=== PATIENT | male | born 1960 | race Hispanic/Latino ===

== ENCOUNTER 2016-12-19 16:28 | Emergency (ER) | payer OTHER ==
[2016-12-19 16:29] VITALS: BMI 23.5
--- NOTE | 2016-12-19 16:34 | ED PDOC ---
Arrival/HPI - General Time Seen by Provider: 12/19/16 16:31 Historian: Patient, EMS - History of Present Illness Narrative History of Present Illness (Text): 12/19/16 16:32 56 y/o male, pmh including chronic L4L5/L5S1 disc herniation and disc bulging, psychiatric history including alcohol abuse, nkda, biba got into verbal argument with the sister plus the chronic lower back pain. Pt. stated that he has been drinking this week due to he is stress out, no homicidal or suicidal ideation, no auditory or visual hallucination. Pt. stated that he has chronic lower back pain on and off for years, no numbness or tingling, no injury or fall recently, request to have xray perform and treat for his pain, no urinary or bowel incontinence or retention, no rash, no other medical or psychological complaints. Past Medical History - Provider Review Nursing Documentation Reviewed: Yes - Tetanus Immunization Tetanus Immunization: Unknown - Cardiac Hx Coronary Artery Disease: Yes (3 stents) Hx Hyperlipemia: Yes Hx Hypertension: Yes - Musculoskeletal/Rheumatological Hx Musculoskeletal Disorders: (back issues) - Psychiatric Hx Depression: Yes Hx Emotional Abuse: No Hx Physical Abuse: No Hx Substance Use: Yes (pt takes his mothers percocet for back pain) - Surgical History Hx Coronary Stent: Yes - Anesthesia Hx Anesthesia: Yes Hx Anesthesia Reactions: No Hx Malignant Hyperthermia: No - Suicidal Assessment Feels Threatened In Home Enviroment: No Family/Social History - Physician Review Nursing Documentation Reviewed: Yes Family/Social History: Unknown Family HX Smoking Status: cigars Hx Alcohol Use: Yes Hx Substance Use: Yes (pt takes his mothers percocet for back pain) Hx Substance Use Treatment: No Allergies/Home Meds Allergies/Adverse Reactions: Allergies No Known Allergies Allergy (Verified 12/19/16 16:51) Home Medications: Home Meds Medication Instructions Recorded Confirmed QUEtiapine [SEROquel] 100 mg PO HS 12/18/11 12/19/16 Review of Systems - Review of Systems Constitutional: absent: Fatigue, Fevers Eyes: absent: Vision Changes ENT: absent: Hearing Changes Respiratory: absent: SOB, Cough Cardiovascular: absent: Chest Pain Gastrointestinal: absent: Abdominal Pain, Diarrhea, Nausea, Vomiting Musculoskeletal: Back Pain. absent: Arthralgias, Neck Pain, Joint Swelling, Myalgias Skin: absent: Rash, Pruritis, Skin Lesions, Laceration Physical Exam Vital Signs Reviewed: Yes Vital Signs Temp Pulse Resp BP Pulse Ox 12/20/16 00:23 73 17 99/56 L 97 12/19/16 16:45 99.1 F 91 H 16 105/58 L 95 Temperature: Afebrile Blood Pressure: Normal Pulse: Regular Respiratory Rate: Normal Appearance: Positive for: Well-Appearing, Non-Toxic, Comfortable Pain Distress: Moderate Mental Status: Positive for: Alert and Oriented X 3 - Systems Exam Head: Present: Atraumatic, Normocephalic Pupils: Present: PERRL Extroacular Muscles: Present: EOMI Conjunctiva: Present: Normal Mouth: Present: Moist Mucous Membranes Neck: Present: Normal Range of Motion Respiratory/Chest: Present: Clear to Auscultation, Good Air Exchange. No: Respiratory Distress, Accessory Muscle Use Cardiovascular: Present: Regular Rate and Rhythm, Normal S1, S2. No: Murmurs Abdomen: Present: Normal Bowel Sounds. No: Tenderness, Distention, Peritoneal Signs Back: Present: Normal Inspection, Paraspinal Tenderness (LS spine: +ttp on the rt. paraspinal muscle region, no midline tenderness or step off noted, FROM without limitation, sensation intact, motor 5/5, ). No: CVA Tenderness, Midline Tenderness Upper Extremity: Present: Normal Inspection. No: Cyanosis, Edema Lower Extremity: Present: Normal Inspection. No: Edema Neurological: Present: GCS=15, Speech Normal, Motor Func Grossly Intact, Gait Normal, Memory Normal Skin: Present: Warm, Dry, Normal Color. No: Rashes Psychiatric: Present: Alert, Oriented x 3, Normal Insight, Normal Concentration Medical Decision Making ED Course and Treatment: 12/19/16 17:12 -toradol IM -Valium 5mg po -LS spine xray -FS 116 -Observe and reassess 12/19/16 17:31 -Xray show: +degenerative changes, no fracture or subluxation. 12/19/16 21:29 -Pt. was having pain, morphine 4mg/lidoderm and percocet ordered for him. -Pt. slept in the ER, not complaining of pain, walking with normal gait and posture, no focal neurological deficits, stable to be discharged home. -Pt. admits that he only need a place to sleep for couple hours for this ER visit, will discharge home. -Discharge home with lidoderm patch, bed rest, follow up with your own pmd within 2 days, return to the ER for any new or worsening signs or symptoms. - RAD Interpretation Radiology Orders: 12/19/16 17:03 LS SPINE WITH OBL > 18 YRS OLD [RAD] Stat No acute fracture. Please see the report for the reading. Cistern Room Working Supervisor: Radiologist - Medication Orders Current Medication Orders: Discontinued Medications Diazepam (Valium) 5 mg PO ONCE ONE PRN Reason: Protocol Stop: 12/19/16 17:04 Last Admin: 12/19/16 17:38 Dose: 5 mg Ketorolac Tromethamine (Toradol) 60 mg IM STAT STA Stop: 12/19/16 17:04 Last Admin: 12/19/16 17:37 Dose: 60 mg Lidocaine (Lidoderm) 1 ea TD STAT STA Stop: 12/19/16 19:19 Last Admin: 12/19/16 19:50 Dose: 1 ea Morphine Sulfate (Morphine) 4 mg IM STAT STA Stop: 12/19/16 19:19 Last Admin: 12/19/16 19:50 Dose: 4 mg Oxycodone/Acetaminophen (Percocet 5/325 Mg Tab) 1 tab PO STAT STA Stop: 12/19/16 21:30 Last Admin: 12/19/16 22:20 Dose: 1 tab - PA / METAL MOLDER / Resident Statement / has reviewed & agrees with the documentation as recorded. Disposition/Present on Arrival - Present on Arrival Any Indicators Present on Arrival: No History of DVT/PE: No History of Uncontrolled Diabetes: No Urinary Catheter: No History of Decub. Ulcer: No History Surgical Site Infection Following: None - Disposition Have Diagnosis and Disposition been Completed?: Yes Diagnosis: Chronic lower back pain Disposition: HOME/ ROUTINE Disposition Time: 21:30 Patient Plan: Discharge Condition: IMPROVED Additional Instructions: Discharge home with lidoderm patch, bed rest, follow up with your own pmd within 2 days, return to the ER for any new or worsening signs or symptoms. Prescriptions: Lidocaine 5% [Lidoderm] 1 patch TOP DAILY PRN #14 patch PRN Reason: Other Referrals: Jet Mejia MD [Primary Care Provider] - Follow up with primary Shaji Winston MD [Staff Provider] - Follow up with primary Forms: WORK NOTE
[2016-12-19 16:46] VITALS: TEMP 99.1
[2016-12-19] MEDS ORDERED: Lidocaine 5% Patch TD STA (19:18)
[2016-12-19] MEDS ORDERED: Morphine 4 mg/ml ISec IM STA (19:18)
[2016-12-19] MEDS ORDERED: Oxycodone/Acetaminophen 5/325 mg Tab PO STA (21:29)
[2016-12-20 00:24] VITALS: BP 99/56; PULSE 73; RESP 17; O2SAT 97
--- NOTE | 2016-12-20 10:34 | RAD ---
PROCEDURE: Radiographs of the Lumbar Spine. HISTORY: Chronic low back pain COMPARISON: MRI lumbar spine from 05/29/2014. FINDINGS: BONES: There is grade 1 anterior listhesis of L5 on S1. There are bilateral pars interarticularis defects at L5. There is no acute fracture. Bone mineralization is normal. DISC SPACES: There is mild degenerative disc disease at L5-S1 with reduced disc height. The remaining disc heights are maintained. There is mild multilevel degenerative disc disease in the visualized lower thoracic spine. OTHER FINDINGS: There are no pathologic soft tissue calcifications. Both sacroiliac joints are normal. IMPRESSION: 1. Bilateral pars interarticularis defects at L5 with grade 1 anterior listhesis of L5 on S1. 2. Mild degenerative disc disease at L5-S1.
== END 2016-12-20 00:24 | disposition home or self-care (01) ==
LOC: ED 16:28
DX: M54.5 Low back pain (principal); G89.29 Other chronic pain
CPT/HCPCS: 72110; 96372; 99283; J1885; J2270

== ENCOUNTER 2018-01-08 19:18 | Emergency (ER) | payer OTHER ==
--- NOTE | 2018-01-08 19:32 | ED PDOC ---
Arrival/HPI - General Time Seen by Provider: 01/08/18 19:28 Historian: Patient - History of Present Illness Narrative History of Present Illness (Text): 01/08/18 19:25 A 57 year old male, whose past medical history includes alcohol abuse, presents to the emergency department complaining of left knee pain started today. Patient reports when he got out of his house today to get mail, walking and he turned around, heard a clicking sound from his left knee joint. Since then, patient notes pain with flexing and extention, however is capable of standing and ambulating to the ER. He mentions he has not taken anything to relieve pain. Patient denies calf/thigh pain, or any other complaints at this time. Past Medical History - Provider Review Nursing Documentation Reviewed: Yes - Tetanus Immunization Tetanus Immunization: Unknown - Cardiac Hx Coronary Artery Disease: Yes (3 stents) Hx Hyperlipemia: Yes Hx Hypertension: Yes - Pulmonary Hx Respiratory Disorders: No - Neurological Hx Neurological Disorder: No - HEENT Hx HEENT Disorder: No - Renal Hx Renal Disorder: No - Endocrine/Metabolic Hx Endocrine Disorders: No - Hematological/Oncological Hx Blood Disorders: No - Integumentary Hx Dermatological Disorder: No Hx Basal Cell Carcinoma: No - Musculoskeletal/Rheumatological Hx Musculoskeletal Disorders: (back issues) - Gastrointestinal Hx Gastrointestinal Disorders: No - Genitourinary/Gynecological Hx Genitourinary Disorders: No - Psychiatric Hx Depression: Yes Hx Emotional Abuse: No Hx Physical Abuse: No Hx Substance Use: Yes (pt takes his mothers percocet for back pain) - Surgical History Hx Coronary Stent: Yes - Anesthesia Hx Anesthesia: Yes Hx Anesthesia Reactions: No Hx Malignant Hyperthermia: No - Suicidal Assessment Feels Threatened In Home Enviroment: No Family/Social History - Physician Review Nursing Documentation Reviewed: Yes Family/Social History: No Known Family HX Smoking Status: cigars Hx Alcohol Use: Yes Hx Substance Use: Yes (pt takes his mothers percocet for back pain) Hx Substance Use Treatment: No Allergies/Home Meds Allergies/Adverse Reactions: Allergies No Known Allergies Allergy (Verified 12/19/16 16:51) Home Medications: Home Meds Medication Instructions Recorded Confirmed QUEtiapine [SEROquel] 100 mg PO HS 12/18/11 12/19/16 Review of Systems - Physician Review All systems were reviewed & negative as marked: Yes - Review of Systems Constitutional: absent: Fatigue Eyes: absent: Vision Changes ENT: absent: Hearing Changes Respiratory: absent: SOB, Cough Cardiovascular: absent: Chest Pain Gastrointestinal: absent: Abdominal Pain, Nausea, Vomiting Musculoskeletal: Arthralgias, Joint Swelling (left knee) Skin: absent: Rash, Pruritis Neurological: absent: Headache, Dizziness Psychiatric: absent: Anxiety, Depression Physical Exam Vital Signs Temp Pulse Resp BP Pulse Ox 01/08/18 21:30 98 F 81 18 145/80 100 01/08/18 19:18 98.1 F 82 18 150/81 95 - Systems Exam Head: Present: Atraumatic, Normocephalic Pupils: Present: PERRL Extroacular Muscles: Present: EOMI Conjunctiva: Present: Normal Mouth: Present: Moist Mucous Membranes Neck: Present: Normal Range of Motion Respiratory/Chest: Present: Clear to Auscultation, Good Air Exchange. No: Respiratory Distress, Accessory Muscle Use Cardiovascular: Present: Regular Rate and Rhythm, Normal S1, S2. No: Murmurs Abdomen: No: Tenderness, Distention, Peritoneal Signs Back: Present: Normal Inspection Upper Extremity: Present: Normal Inspection. No: Cyanosis, Edema Lower Extremity: Present: Normal Inspection, Other (LLE: +ttp and swelling on the anterior patellar region with skin intact along, no erythematous/cellulitis/ streaking/ulcers, FROM without limitation, sensation intact, motor 5/5, +DPPT pulses, capillary refill< 2 seconds, neurovascular intact. ). No: Edema Neurological: Present: GCS=15, CN II-XII Intact, Speech Normal Skin: Present: Warm, Dry, Normal Color. No: Rashes Psychiatric: Present: Alert, Oriented x 3, Normal Insight, Normal Concentration Medical Decision Making ED Course and Treatment: 01/08/18 19:28 Impression: 57 year old male with left knee pain. Plan: -- Left Knee X-Ray -- Percocet -- Ibuprofen -- Reassess and disposition 01/08/18 20:50 -Lt. knee xray show no fracture or dislocatoin -Pt. feels much better. -Andrew wrap applied with neurovascular intact by me, crutches -Discharge home with motrin, andrew wrap, crutches, ice compression, non-weight bearing, follow up with your own pmd and orthopedic within 2 days, return to the ER for any new or worsening signs or symptoms. - RAD Interpretation Radiology Orders: 01/08/18 19:46 KNEE WITH PATELLA LEFT 3 VIEW [RAD] Stat normal radiograph of the left knee Pumping Station Engineer: Radiologist - Medication Orders Current Medication Orders: Discontinued Medications Ibuprofen (Motrin Tab) 600 mg PO STAT STA Stop: 01/08/18 19:47 Last Admin: 01/08/18 20:19 Dose: 600 mg [facility] Pain/Vitals Document 01/08/18 20:19 [place] (Rec: 01/08/18 20:19 LA [facility] [email or web address]) Pain Reassessment Is This A Pain ReAssessment? No Sleep Is patient sleeping during reassessment? No Presence of Pain Presence of Pain Yes Pain Scale Used Pain Scale Used Numeric Location Upper or Lower Lower Pain Location Body Site Knee Intensity 9 Re-Assess: [facility] Pain/Vitals Document 01/08/18 21:19 LA (Rec: 01/08/18 21:29 LA [facility] [email or web address] Pain Reassessment Is This A Pain ReAssessment? Yes Sleep Is patient sleeping during reassessment? No Presence of Pain Presence of Pain Yes Pain Scale Used Pain Scale Used Numeric Location Left, Right or Bilateral Left Pain Location Body Site Knee Intensity 2 Scale Used Numeric Oxycodone/Acetaminophen (Percocet 5/325 Mg Tab) 1 tab PO STAT STA Stop: 01/08/18 19:47 Last Admin: 01/08/18 20:20 Dose: 1 tab [facility] Pain Assessment Document 01/08/18 20:20 LA (Rec: 01/08/18 20:20 LA [email or web address] Pain Reassessment Is this a pain reassessment? No Sleep Is patient sleeping during reassessment? No Presence of Pain Presence of Pain Yes Pain Scale Used Pain Scale Used Numeric Location Left, Right or Bilateral Left Upper or Lower Lower Pain Location Body Site Knee Description Pain Behavior Guarding Re-Assess: [facility] Pain Assessment Document 01/08/18 21:20 LA (Rec: 01/08/18 21:29 LA [email or web address] Pain Reassessment Is this a pain reassessment? Yes Sleep Is patient sleeping during reassessment? No Presence of Pain Presence of Pain Yes Pain Scale Used Pain Scale Used Numeric Location Left, Right or Bilateral Left Pain Location Body Site Knee Description Intensity of Pain at present 2 Acceptable Level of Pain 2 Pain Behavior Guarding - PA / BARREL CUTTER / Resident Statement / has reviewed & agrees with the documentation as recorded. - Scribe Statement The provider has reviewed the documentation as recorded by the Lefty Philip Provider Scribe Provider Lefty Attestation: All medical record entries made by the Lefty were at my direction and personally dictated by me. I have reviewed the chart and agree that the record accurately reflects my personal performance of the history, physical exam, medical decision making, and the department course for this patient. I have also personally directed, reviewed, and agree with the discharge instructions and disposition. Disposition/Present on Arrival - Present on Arrival Any Indicators Present on Arrival: No History of DVT/PE: No History of Uncontrolled Diabetes: Yes Urinary Catheter: No History of Decub. Ulcer: No History Surgical Site Infection Following: None - Disposition Have Diagnosis and Disposition been Completed?: Yes Diagnosis: Knee injury, Knee pain Disposition: HOME/ ROUTINE Disposition Time: 19:53 Patient Plan: Discharge Condition: IMPROVED Additional Instructions: -Discharge home with motrin, andrew wrap, crutches, ice compression, non-weight bearing, follow up with your own pmd and orthopedic within 2 days, return to the ER for any new or worsening signs or symptoms. Prescriptions: Ibuprofen [Motrin] 600 mg PO QID PRN #30 tab PRN Reason: Other Referrals: Darryl Gallego III, MD [Medical Doctor] - Follow up with primary [facility] at [facility] [Outside] - Follow up with primary Forms: WORK NOTE
[2018-01-08] MEDS ORDERED: Oxycodone/Acetaminophen 5/325 mg Tab PO STA (19:46)
[2018-01-08 19:47] VITALS: BMI 24.3
[2018-01-08 20:11] VITALS: RESP 18
[2018-01-08 21:31] VITALS: BP 145/80; PULSE 81; TEMP 98; O2SAT 100
--- NOTE | 2018-01-09 08:19 | RAD ---
Date of service: 01/08/2018 PROCEDURE: Left Knee Radiographs. HISTORY: Pain. COMPARISON: None. FINDINGS: BONES: Normal. No fracture. JOINTS: Normal. No osteoarthritis. JOINT EFFUSION: None. OTHER FINDINGS: None. IMPRESSION: Normal radiographs of the left knee.
== END 2018-01-08 21:32 | disposition home or self-care (01) ==
LOC: ED 19:18
DX: M25.562 Pain in left knee (principal); X58.XXXA Exposure to other specified factors, initial encounter

== ENCOUNTER 2018-04-24 05:55 | Inpatient (IN) | payer OTHER ==
--- NOTE | 2018-04-24 06:12 | ED PDOC ---
Arrival/HPI - General Chief Complaint: Weakness/Neurological Deficit Time Seen by Provider: 04/24/18 05:57 Historian: Patient - History of Present Illness Narrative History of Present Illness (Text): 04/24/18 06:05 Jet Carrasco is a 57 year old male smoker, whose past medical history includes CAD with 3 cardiac stents, hyperlipidemia, hypertension, chronic back pain, and alcohol abuse, who presents to the Emergency department brought in by EMS complaining of near-syncope. Patient states he woke up this morning, got up from bed, felt very weak while walking, and suddenly fell to the ground. Patient states he was unable to get up from the floor and crawled on the floor to open the door. Patient also reports bilateral lower extremity weakness with some discomfort. Patient notes yesterday he had some chest pain, but none currently. Patient states he was scheduled for an epidural earlier this week, however his mother . Patient denies any fever, chills, shortness of breath, abdominal pain, nausea, vomiting, back pain, headache, vision changes, or any other complaints. Time/Duration: Prior to Arrival Symptom Onset: Sudden Symptom Course: Unchanged Activities at Onset: Light Context: Home Past Medical History - Provider Review Nursing Documentation Reviewed: Yes - Infectious Disease Hx of Infectious Diseases: None - Tetanus Immunization Tetanus Immunization: Unknown - Cardiac Hx Hypertension: Yes - Pulmonary Hx Respiratory Disorders: No - Neurological Hx Neurological Disorder: No - HEENT Hx HEENT Disorder: No - Renal Hx Renal Disorder: No - Endocrine/Metabolic Hx Endocrine Disorders: No - Hematological/Oncological Hx Blood Disorders: No - Integumentary Hx Dermatological Disorder: No Hx Basal Cell Carcinoma: No - Musculoskeletal/Rheumatological Hx Musculoskeletal Disorders: (back issues) - Gastrointestinal Hx Gastrointestinal Disorders: No - Genitourinary/Gynecological Hx Genitourinary Disorders: No - Psychiatric Hx Depression: Yes Hx Emotional Abuse: No Hx Physical Abuse: No Hx Substance Use: Yes (pt takes his mothers percocet for back pain) - Surgical History Hx Coronary Stent: Yes - Anesthesia Hx Anesthesia: Yes Hx Anesthesia Reactions: No Hx Malignant Hyperthermia: No - Suicidal Assessment Feels Threatened In Home Enviroment: No Family/Social History - Physician Review Nursing Documentation Reviewed: Yes Family/Social History: Unknown Family HX Smoking Status: Never Smoked Hx Alcohol Use: Yes Hx Substance Use: Yes (pt takes his mothers percocet for back pain) Hx Substance Use Treatment: No Allergies/Home Meds Allergies/Adverse Reactions: Allergies No Known Allergies Allergy (Verified 12/19/16 16:51) Home Medications: Home Meds Medication Instructions Recorded Confirmed Gabapentin [Neurontin] 300 mg PO Q8H 04/24/18 04/24/18 Oxycodone HCl/Acetaminophen 1 each PO TID PRN 04/24/18 04/24/18 [Percocet 10-325 mg Tablet] QUEtiapine [SEROquel] 100 mg PO HS 04/24/18 04/24/18 Review of Systems - Physician Review All systems were reviewed & negative as marked: Yes - Review of Systems Constitutional: Other (+generalized weakness). absent: Fevers Eyes: Normal ENT: Normal Respiratory: Normal Cardiovascular: Chest Pain, Other (+near-syncope) Gastrointestinal: Normal. absent: Abdominal Pain, Diarrhea, Nausea, Vomiting Genitourinary Male: Normal. absent: Dysuria, Frequency, Hematuria, Urinary Output Changes Musculoskeletal: Normal. absent: Back Pain, Neck Pain Skin: Normal. absent: Rash Neurological: Other (+bilateral lower extremity weakness) Endocrine: Normal Hemo/Lymphatic: Normal Psychiatric: Normal Physical Exam Vital Signs Reviewed: Yes Temperature: Afebrile Blood Pressure: Normal Pulse: Regular Respiratory Rate: Normal Appearance: Positive for: Well-Appearing, Non-Toxic, Comfortable Pain Distress: None Mental Status: Positive for: Alert and Oriented X 3 - Systems Exam Head: Present: Atraumatic, Normocephalic Pupils: Present: PERRL Extroacular Muscles: Present: EOMI Conjunctiva: Present: Normal Mouth: Present: Moist Mucous Membranes Neck: Present: Normal Range of Motion Respiratory/Chest: Present: Clear to Auscultation, Good Air Exchange. No: Respiratory Distress, Accessory Muscle Use Cardiovascular: Present: Regular Rate and Rhythm, Normal S1, S2. No: Murmurs Abdomen: No: Tenderness, Distention, Peritoneal Signs Back: Present: Normal Inspection Upper Extremity: Present: Normal Inspection. No: Cyanosis, Edema Lower Extremity: Present: Normal Inspection. No: Edema Neurological: Present: GCS=15, CN II-XII Intact, Speech Normal Skin: Present: Warm, Dry, Normal Color. No: Rashes Psychiatric: Present: Alert, Oriented x 3, Normal Insight, Normal Concentration Medical Decision Making ED Course and Treatment: 04/24/18 06:06 Impression: 57 year old male complaining of near-syncope, generalized weakness, bilateral lower extremity weakness, and chest pain. Plan: -- CT Head w/o contrast -- EKG -- Chest X-ray -- Labs, cardiac enzynes, D-dimer -- Reassess and disposition Prior Visits: Notes and results from previous visits were reviewed. On 01/08/2018, pt was seen in the Emergency department for left knee pain. Pt was discharged home. Progress Notes: Reviewed EKG, sinus rhythm at 91 bpm. Occasional PVC. Inferior infarct. Prolonged QT. - EKG Interpretation Interpreted by ED Physician: Yes Type: 12 lead EKG - Transfer of Care Patient signed out to Dr:: anival labs ct and dispo - Scribe Statement The provider has reviewed the documentation as recorded by the Lefty William Provider Scribe Attestation: All medical record entries made by the Scribe were at my direction and personally dictated by me. I have reviewed the chart and agree that the record accurately reflects my personal performance of the history, physical exam, medical decision making, and the department course for this patient. I have also personally directed, reviewed, and agree with the discharge instructions and disposition. Disposition/Present on Arrival - Present on Arrival Any Indicators Present on Arrival: No History of DVT/PE: No History of Uncontrolled Diabetes: Yes Urinary Catheter: No History of Decub. Ulcer: No History Surgical Site Infection Following: None - Disposition Have Diagnosis and Disposition been Completed?: Yes Diagnosis: Syncope, Chest pain, Hyponatremia, Hypokalemia Disposition: HOSPITALIZED Disposition Time: 07:00 Patient Problems: Current Active Problems Problem Status Onset Chest pain Acute Hypokalemia Acute Hyponatremia Acute Syncope Acute Condition: FAIR
[2018-04-24 06:40] LABS: BASO # 0.02 K/mm3 (0.0-2.0); BASO % 0.2 % (0.0-3.0); EOS % 0.4 % (1.5-5.0); GRAN # 5.81 (1.4-6.5); GRAN % 68.3 % (50.0-68.0); HEMOGLOBIN 15.6 g/dL (14.0-18.0); LYMPH # 1.6 (1.2-3.4); LYMPH % 18.8 % (22.0-35.0); MEAN CORPUSCULAR HEMOGLOBIN 31.2 pg (25.0-35.0); MEAN CORPUSCULAR HGB CONC 34.7 g/dl (31.0-37.0); MEAN PLATELET VOLUME 10.2 fl (7.0-11.0); MONO # 1.1 (0.1-0.6); MONO % 12.3 % (1.0-6.0); RED CELL DISTRIBUTION WIDTH 13.9 % (11.5-14.5); WHITE BLOOD COUNT 8.5 10^3/ul (4.5-11.0)
[2018-04-24 06:45] LABS: INR 0.9; PARTIAL THROMBOPLASTIN TIME 24.4 Seconds (25.1-36.5); PROTHROMBIN TIME 10.3 SECONDS (9.4-12.5)
--- NOTE | 2018-04-24 06:53 | ED PDOC ---
Physical Exam Vital Signs Reviewed: Yes Vital Signs Temp Pulse Resp BP Pulse Ox 04/24/18 06:19 99.4 F 83 15 142/85 92 L Temperature: Afebrile Blood Pressure: Normal Pulse: Regular Respiratory Rate: Normal Appearance: Positive for: Well-Appearing, Non-Toxic, Comfortable Mental Status: Positive for: Alert and Oriented X 3 Medical Decision Making ED Course and Treatment: 04/24/18 06:[address] Floyd pending chemistries. Labs reviewed with elevated D-dimer. Will wait for chemistries prior to ordering CT angio. 04/24/18 07:37 Labs reviewed with hyponatremia to 128 noted with associated hypokalemia of 2.6. Will replete. Call placed to Dr. Lee(medical service). 04/24/18 08:[address] Bolanos who is aware and agrees with the plan. Accepts patient into his service. - Lab Interpretations Lab Results: Lab Results 04/24/18 06:23: PT 10.3, INR 0.90, APTT 24.4 L, D-Dimer, Quantitative 880 H - RAD Interpretation Narrative RAD Interpretations (Text): PROCEDURE: CT Chest with contrast (Pulmonary Angiogram) Dictator : Zac Woodard MD Enrolled Nurse : Report Date : 04/24/2018 09:42:53 IMPRESSION: No pulmonary embolus PROCEDURE: CT HEAD WITHOUT CONTRAST. Dictator : Zac Woodard MD Report Date : 04/24/2018 07:20:27 IMPRESSION: Normal CT of the Head. PROCEDURE: Chest X-ray Dictator : Marcia Cortez MD Report Date : 04/24/2018 09:58:40 IMPRESSION: No active pulmonary disease. Radiology Orders: 04/24/18 06:07 HEAD W/O CONTRAST [CT] Stat CHEST ONE VIEW [RAD] Stat Financial Aid Advisor: Radiologist Disposition/Present on Arrival - Present on Arrival Any Indicators Present on Arrival: Yes History of DVT/PE: No History of Uncontrolled Diabetes: Yes Urinary Catheter: No History of Decub. Ulcer: No History Surgical Site Infection Following: None - Disposition Have Diagnosis and Disposition been Completed?: Yes Diagnosis: Syncope, Chest pain, Hyponatremia, Hypokalemia Disposition: HOSPITALIZED Disposition Time: 08:40 Patient Plan: Observation Patient Problems: Current Active Problems Problem Status Onset Chest pain Acute Hypokalemia Acute Hyponatremia Acute Syncope Acute Condition: FAIR
[2018-04-24 06:57] LABS: TROPONIN I 0.03 ng/mL
[2018-04-24 07:19] LABS: ALB/GLOB RATIO 1.2 (1.1-1.8); ALBUMIN 4.6 g/dL (3.0-4.8); ALT/SGPT 47 U/L (7-56); AST/SGOT 102 U/L (17-59); BLOOD UREA NITROGEN 35 mg/dL (7-21); CALCIUM 9.1 mg/dL (8.4-10.5); GFR NON-AFRICAN AMERICAN > 60
[2018-04-24] MEDS ORDERED: Sodium Chloride 0.9% 1,000 ML IV STA (07:31)
[2018-04-24] MEDS ORDERED: Potassium Chloride 40 mEq/30 ml LIQ UD PO STA (07:32)
[2018-04-24] MEDS ORDERED: Iohexol 350 MG/100 ML VIAL ONE (07:46)
[2018-04-24 08:12] LABS: CK-MB 2.4 ng/mL (0.0-3.6)
--- NOTE | 2018-04-24 09:34 | CT ---
Date of service: 04/24/2018 PROCEDURE: CT HEAD WITHOUT CONTRAST. HISTORY: syncope COMPARISON: None available. TECHNIQUE: Axial computed tomography images were obtained through the head/brain without intravenous contrast. Radiation dose: Total exam DLP = 884.93 mGy-cm. This CT exam was performed using one or more of the following dose reduction techniques: Automated exposure control, adjustment of the mA and/or kV according to patient size, and/or use of iterative reconstruction technique. FINDINGS: HEMORRHAGE: No intracranial hemorrhage. BRAIN: No mass effect or edema. No atrophy or chronic microvascular ischemic changes. VENTRICLES: Unremarkable. No hydrocephalus. CALVARIUM: Unremarkable. PARANASAL SINUSES: Unremarkable as visualized. No significant inflammatory changes. MASTOID AIR CELLS: Unremarkable as visualized. No inflammatory changes. OTHER FINDINGS: None. IMPRESSION: Normal CT of the Head.
--- NOTE | 2018-04-24 09:46 | CT ---
Date of service: 04/24/2018 PROCEDURE: CT Chest with contrast (Pulmonary Angiogram) HISTORY: Syncope, elevated D-dimer COMPARISON: None available. TECHNIQUE: Axial computed tomography images were obtained of the chest in the pulmonary arterial phase of enhancement. Coronal and sagittal reformatted images were created and reviewed. Intravenous contrast dose: Radiation dose: Total exam DLP = 294.5 mGy-cm. This CT exam was performed using one or more of the following dose reduction techniques: Automated exposure control, adjustment of the mA and/or kV according to patient size, and/or use of iterative reconstruction technique. FINDINGS: PULMONARY ARTERIES: Unremarkable. No pulmonary embolism. AORTA: No acute findings. No thoracic aortic aneurysm. No aortic atherosclerotic calcification or mural plaque present. LUNGS: Unremarkable. No nodule, mass or pulmonary consolidation. PLEURAL SPACES: Unremarkable. No effusion or pneumothorax. HEART: Coronary artery calcifications. No cardiomegaly. No significant pericardial effusion. LYMPH NODES: No lymphadenopathy. BONES, CHEST WALL: Unremarkable. No fracture or destructive lesion OTHER FINDINGS: Pancreatic calcifications. IMPRESSION: No pulmonary embolus.
--- NOTE | 2018-04-24 10:02 | RAD ---
Date of service: 04/24/2018 PROCEDURE: CHEST RADIOGRAPH, 1 VIEW HISTORY: chest pain COMPARISON: None available. FINDINGS: LUNGS: The lungs are well inflated and clear. PLEURA: No pneumothorax or pleural fluid seen. CARDIOVASCULAR: The heart is normal in size. Atherosclerotic aortic arch calcifications are present. OSSEOUS STRUCTURES: No significant abnormalities. VISUALIZED UPPER ABDOMEN: Normal. OTHER FINDINGS: None. IMPRESSION: No active pulmonary disease.
--- NOTE | 2018-04-24 11:03 | CARD ---
APPROVED REPORT Date of service: 04/24/2018 EKG Measurement Heart [id number] <Conclusion> Sinus rhyth with one APC, one PVC NSSTW changes Prolonged QTc
[2018-04-24] MEDS ORDERED: Pneumococcal 23-Valent Vaccine IM ONE (13:26)
[2018-04-24] MEDS ORDERED: Influenza Vaccine 60 mcg/0.5 mL SYR (4YR UP) IM ONE (13:26)
[2018-04-24] MEDS ORDERED: Sodium Chloride 0.9% 1,000 ML IV SCH (13:45)
[2018-04-24] MEDS ORDERED: Oxycodone/Acetaminophen 10/325 mg Tab PO PRN (13:46)
--- NOTE | 2018-04-24 13:59 | CP.PCM.HP ---
<ClementinaRio jones - Last Filed: 04/24/18 16:52> History of Present Illness - History of Present Illness History of Present Illness: Rio cMrae PGY2 IM H&P Note for Dr. Bolanos cc: passing out, weakness Mr. Carrasco is a 57-year-old male with a PMH of CAD post 3 stents in 1999, depression, L4-L5 herniated disc with radiculopathy who presented to the ED with complaints of falling to the floor due to leg weakness and passing out earlier today. Of note, there are inconsistent reports from ED notes about whether the patient experienced LOC or not. Patient states that he has radiculopathy in his legs, for which he takes gabapentin (added 1 month ago) and Percocet, but that he has not been eating very well for the last few days, which led him to the weakness and a fall earlier today. He denied head trauma, chest pain, shortness of breath, dizziness, headache, changes in vision/hearing, nausea/vomiting or any urinary changes. He states that he did experience diarrhea on 2 days ago after eating wings and drinking beer the night before. The patient states that his mother 3 days ago, and that he will now be living alone. He was counselled on benefits of smoking cessation but refused patch. 12 point ROS was reviewed and is otherwise unremarkable. In ED, EKG showed NSR at 91 bpm, prolonged QTC. CXR was unremarkable. Head CT was unremarkable. D-dimer was elevated in 800s, but CT/PE was negative for pulmonary embolus. Labs revealed hyponatremia, hypochloremic hypokalemic metabolic alkalosis. He was given 1L NS bolus, and potassium supplemented. PMD: Dr. Mejia, has not seen recently Pain: Dr. Hawk Psych: Dr. Alonzo PMH: As above PSH: 5 epidurals Meds: As per [facility] Pharmacy: [facility] (according to records, patient is on Percocet 10/325mg TID, which he received #21 on 03/31, #21 on 04/10, and #45 on 04/14) Allergies: NKDA SHX: 11 cigars daily, former 3 pack/day tobacco user, weekly social alcohol use, denies drug use; worked as sprinkler truck driver, currently unemployed FHX: Mom of cancer liver, dad at 49 y.o. (unsure why) Present on Admission - Present on Admission Any Indicators Present on Admission: No Review of Systems - Review of Systems All systems: reviewed and no additional remarkable complaints except (as per HPI) Past Patient History - Infectious Disease Hx of Infectious Diseases: None - Tetanus Immunizations Tetanus Immunization: Unknown - Past Social History Smoking Status: Current Some Days Smoker Alcohol: Social Drugs: Denies Home Situation {Lives}: With Family - CARDIAC Hx Cardiac Disorders: Yes (cad, mi 2009 3 stents) - PULMONARY Hx Respiratory Disorders: No - NEUROLOGICAL Hx Neurological Disorder: Yes (radiculopathy ) - HEENT Hx HEENT Problems: Yes (reading glasses) - RENAL Hx Chronic Kidney Disease: No - ENDOCRINE/METABOLIC Hx Endocrine Disorders: No - HEMATOLOGICAL/ONCOLOGICAL Hx Blood Disorders: No - INTEGUMENTARY Hx Dermatological Problems: Yes Other/Comment: multiple skin discolorations b/l arms purple color pt stated "it started when I was on Plavix, I'm off it now, 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." tatoos - MUSCULOSKELETAL/RHEUMATOLOGICAL Hx Falls: Yes - GASTROINTESTINAL Hx Gastrointestinal Disorders: Yes Hx Gastroesophageal Reflux: Yes ("yrs ago") - GENITOURINARY/GYNECOLOGICAL Hx Genitourinary Disorders: No - PSYCHIATRIC Hx Substance Use: (pot 38 yrs ago, denies current abuse) - SURGICAL HISTORY Hx Surgeries: Yes Hx Coronary Stent: Yes (x3) - ANESTHESIA Hx Anesthesia: Yes Hx Anesthesia Reactions: No Hx Malignant Hyperthermia: No Meds Allergies/Adverse Reactions: Allergies Allergy/AdvReac Type Severity Reaction Status Date / Time No Known Allergies Allergy Verified 12/19/16 16:51 Physical Exam - Constitutional Appears: Non-toxic, No Acute Distress - Head Exam Head Exam: ATRAUMATIC, NORMAL INSPECTION - Eye Exam Eye Exam: Normal appearance - ENT Exam ENT Exam: Mucous Membranes Dry - Neck Exam Neck exam: Positive for: Normal Inspection - Respiratory Exam Respiratory Exam: NORMAL BREATHING PATTERN. absent: Rales, Rhonchi, Wheezes, Respiratory Distress - Cardiovascular Exam Cardiovascular Exam: RRR, +S1, +S2. absent: Systolic Murmur - GI/Abdominal Exam GI & Abdominal Exam: Normal Bowel Sounds, Soft. absent: Distended, Tenderness - Extremities Exam Extremities exam: Positive for: full ROM, pedal pulses present. Negative for: pedal edema - Back Exam Back exam: NORMAL INSPECTION - Neurological Exam Neurological exam: Alert, CN II-XII Intact, Normal Gait, Oriented x3 Additional comments: no motor sensory deficits - Psychiatric Exam Psychiatric exam: Normal Mood - Skin Skin Exam: Normal Color, Warm Results - Vital Signs Recent Vital Signs: Last Vital Signs Temp 98.7 F 04/24/18 11:43 Pulse 82 04/24/18 13:03 Resp 17 04/24/18 13:03 BP 105/58 L 04/24/18 11:43 Pulse Ox 96 04/24/18 11:43 - Labs Result Diagrams: 04/24/18 06:23 04/24/18 06:23 Labs: Laboratory Results - last 24 hr 04/24/18 04/24/18 04/24/18 06:23 06:23 06:23 WBC 8.5 RBC 5.00 Hgb 15.6 Hct 45.0 MCV 90.0 D MCH 31.2 MCHC 34.7 RDW 13.9 Plt Count 157 MPV 10.2 Gran % 68.3 H Lymph % (Auto) 18.8 L [place] % (Auto) 12.3 H Eos % (Auto) 0.4 L Baso % (Auto) 0.2 Gran # 5.81 Lymph # (Auto) 1.6 [place] # (Auto) 1.1 H Eos # (Auto) 0.0 Baso # (Auto) 0.02 PT 10.3 INR 0.90 APTT 24.4 L D-Dimer, Quantitative 880 H Sodium 128 L Potassium 2.6 L* D Chloride 72 L D Carbon Dioxide 39 H Anion Gap 20 BUN 35 H Creatinine 1.2 Est GFR ( Amer) > 60 Est GFR (Non-Af Amer) > 60 Random Glucose 124 H Calcium 9.1 Magnesium 2.8 H Total Bilirubin 1.4 H AST 102 H D ALT 47 Alkaline Phosphatase 128 H D Lactate Dehydrogenase 583 Total Creatine Kinase 507 H CK-MB (CK-2) 2.4 CK-MB (CK-2) % Cancelled Troponin I 0.03 Total Protein 8.5 H Albumin 4.6 Globulin 3.9 Albumin/Globulin Ratio 1.2 Assessment & Plan - Assessment and Plan (Free Text) Assessment: 57-year-old male with a PMH of CAD post 3 stents in 1999, depression, L4-L5 herniated disc with radiculopathy admitted for syncope. There are no signs of intracranial hemorrhage and patient is ambulating well with no symptoms currently. Will require neuro and cardiac workup to r/o underlying disease. Hyponatremia and hypochloremic hypokalemic metabolic alkalosis are noted. Plan: - NS @ 100cc/h - K supplements - Echo and cartoid US ordered - PT eval ordered - fall risk moderate - Neurology consulted, recs appreciated - Cardio consulted, recs appreciated - cont Seroquel home dose - cont Gabapentin and Percocet - ordered A1C, TSH and Lipid panel - HHD - ambulatory so no need for DVT ppx - Further recs per Dr. Bolanos Case was reviewed and discussed with attending, Dr. Cici Mcrae PGY2 <Roverto Bolanos S - Last Filed: 04/24/18 17:16> Results - Vital Signs Recent Vital Signs: Last Vital Signs Temp 98.7 F 04/24/18 11:43 Pulse 82 04/24/18 13:03 Resp 17 04/24/18 13:03 BP 105/58 L 04/24/18 11:43 Pulse Ox 96 04/24/18 11:43 - Labs Result Diagrams: 04/24/18 06:23 04/24/18 06:23 Labs: Laboratory Results - last 24 hr 04/24/18 04/24/18 04/24/18 06:23 06:23 06:23 WBC 8.5 RBC 5.00 Hgb 15.6 Hct 45.0 MCV 90.0 D MCH 31.2 MCHC 34.7 RDW 13.9 Plt Count 157 MPV 10.2 Gran % 68.3 H Lymph % (Auto) 18.8 L [place] % (Auto) 12.3 H Eos % (Auto) 0.4 L Baso % (Auto) 0.2 Gran # 5.81 Lymph # (Auto) 1.6 [place] # (Auto) 1.1 H Eos # (Auto) 0.0 Baso # (Auto) 0.02 PT 10.3 INR 0.90 APTT 24.4 L D-Dimer, Quantitative 880 H Sodium 128 L Potassium 2.6 L* D Chloride 72 L D Carbon Dioxide 39 H Anion Gap 20 BUN 35 H Creatinine 1.2 Est GFR ( Amer) > 60 Est GFR (Non-Af Amer) > 60 Random Glucose 124 H Serum Osmolality Calcium 9.1 Magnesium 2.8 H Total Bilirubin 1.4 H AST 102 H D ALT 47 Alkaline Phosphatase 128 H D Lactate Dehydrogenase 583 Total Creatine Kinase 507 H CK-MB (CK-2) 2.4 CK-MB (CK-2) % Cancelled Troponin I 0.03 Total Protein 8.5 H Albumin 4.6 Globulin 3.9 Albumin/Globulin Ratio 1.2 Urine Color Urine Appearance Urine pH Ur Specific [place] Urine Protein Urine Glucose (UA) Urine Ketones Urine Blood Urine Nitrate Urine Bilirubin Urine Urobilinogen Ur Leukocyte Esterase Urine RBC Urine WBC Ur Epithelial Cells Urine Bacteria 04/24/18 04/24/18 06:32 14:00 WBC RBC Hgb Hct MCV MCH MCHC RDW Plt Count MPV Gran % Lymph % (Auto) [place] % (Auto) Eos % (Auto) Baso % (Auto) Gran # Lymph # (Auto) [place] # (Auto) Eos # (Auto) Baso # (Auto) PT INR APTT D-Dimer, Quantitative Sodium Potassium Chloride Carbon Dioxide Anion Gap BUN Creatinine Est GFR ( Amer) Est GFR (Non-Af Amer) Random Glucose Serum Osmolality 275 Calcium Magnesium Total Bilirubin AST ALT Alkaline Phosphatase Lactate Dehydrogenase Total Creatine Kinase CK-MB (CK-2) CK-MB (CK-2) % Troponin I Total Protein Albumin Globulin Albumin/Globulin Ratio Urine Color Yellow Urine Appearance Clear Urine pH 6.5 Ur Specific [place] 1.010 Urine Protein Trace H Urine Glucose (UA) Negative Urine Ketones Negative Urine Blood Negative Urine Nitrate Negative Urine Bilirubin Negative Urine Urobilinogen 0.2 Ur Leukocyte Esterase Negative Urine RBC 0 - 2 Urine WBC 0 - 2 Ur Epithelial Cells None Urine Bacteria Many Assessment & Plan - Assessment and Plan (Free Text) Plan: Pt seen and examined. I have reviewed the note of the medical services assistant and agree with it. I have discussed the assessment and plan with the resident. I have reviewed the patient's labs and medications. pt with Hyponatremia and hypokalemia. Pt with syncopal episode. He has been having pain and drinking lots of water. This may be causing the hyponatremia. The pt will get KCl to morgan pplement for the low K. He has CAD and will need to continue with ASA. His back pain is due to L4/L5 disc herniation and has been placed on Percocet. He will need Cardiology and Neurology evaluation. He has been placed on Gabapentin. Check am labs.
[2018-04-24 14:24] LABS: PH,URINE 6.5 (4.7-8.0); URINE BILIRUBIN NEGATIVE (NEGATIVE); URINE BLOOD NEGATIVE (NEGATIVE); URINE GLUCOSE (UA) NEGATIVE (NEGATIVE); URINE LEUKOCYTE ESTERASE NEGATIVE Leu/uL (NEGATIVE); URINE PROTEIN TRACE mg/dL (<30 mg/dL); URINE UROBILINOGEN 0.2 E.U./dL (<1 E.U./dL)
[2018-04-24 14:25] LABS: URINE APPEARANCE CLEAR (CLEAR); URINE COLOR YELLOW (YELLOW)
[2018-04-24 14:28] LABS: URINE BACTERIA MANY (NEG); URINE RBC 0 - 2 /hpf (0-2); URINE WBC 0 - 2 /hpf (0-6)
[2018-04-24] MEDS ORDERED: Potassium Chloride 20 mEq ER Tab PO ONE (18:00)
[2018-04-24 21:30] LABS: OSMOLALITY,URINE 791 mosm/kg (300-1000)
--- NOTE | 2018-04-24 21:36 | CON ---
DATE: 04/24/2018 NEUROLOGY CONSULTATION This is a 57-year-old man. CHIEF COMPLAINT: Generalized weakness. HISTORY OF PRESENT ILLNESS: This is a 57-year-old man with history of coronary artery disease status post 3 stents in 1999, depression, L4-L5 herniated disk for radiculopathy, presented to the ER with complaints of falling to the floor due to his leg weakness and passing out earlier. The patient states that he has had radiculopathy in his legs for which he takes gabapentin and Percocet and he also gets an epidural injection, but has found generalized weakness in his legs. He did experience diarrhea for the past two days ago and has been eating wings and drinking beer the night before. Recently, his mother had and has been living alone and has been mildly depressed. He is a smoker and counseled on smoking cessation. CAT scan of the head showed no acute intracranial abnormality. He has metabolic derangements. His labs revealed hyponatremia with hypochloremic metabolic alkalosis and hypokalemia, where he was given fluids currently. He is undergoing carotid Doppler. No focal weakness seen on extremities. PAST MEDICAL HISTORY: As above. SOCIAL HISTORY: He cigars daily. Former three pack tobacco user. Weekly social alcohol use. Worked as a taxi truck driver in the past, currently unemployed. REVIEW OF SYSTEMS: Fourteen-point review of systems is negative except as per the HPI. PHYSICAL EXAMINATION: GENERAL: The patient is sitting up in bed, in no acute distress. VITAL SIGNS: Temperature of 98.7, pulse rate of 82, blood pressure 105/58, respiratory rate of 17 and oxygen saturation 98% on room air HEENT: Head is atraumatic, normocephalic. PERRLA. Extraocular muscles intact. NECK: Supple. No JVD. No adenopathy noted. LUNGS: Clear to auscultation. No adventitious sounds. HEART: S1 and S2, normal rate and rhythm. No murmur, rubs or gallops. ABDOMEN: Soft, nontender, and nondistended. Bowel sounds present. EXTREMITIES: No clubbing. No cyanosis. Peripheral pulses are 2+ felt bilaterally. NEUROLOGIC: The patient is alert and oriented to person, place, month and year. Speech is fluent without any errors. Cranial nerves II through XII intact. Motor exam: Moves all extremities equally. No pronator drift seen. Sensory exam: Light touch, pinprick, proprioception, and vibration are intact. DTRs are 2+ throughout. Coordination: [id number] intact. No dysmetria noted. LABORATORY DATA: Sodium is 128, potassium 2.6, chloride of 72, carbon dioxide 39, BUN of 35, creatinine 1.2, random glucose of 124. IMPRESSION: Syncope and generalized weakness, likely secondary to metabolic derangements, superimposed underlying central disk herniation at L4-L5 with multilevel spondylosis in L5-S1 causing generalized leg weakness and low back pain for which physical therapy is best benefited as well as neuropathic agents. At this time recommend: 1. Monitor electrolytes and correct accordingly. 2. Intravenous hydration. 3. Alcohol and smoking cessation advised. 4. Carotid Doppler to assess for any coronary artery disease and continue current present medical management. Gianluca Blackburn MD
[2018-04-24 21:47] LABS: BARBITURATES, UR NEGATIVE (NEGATIVE); BENZODIAZEPINES, UR NEGATIVE (NEGATIVE); OPIATES, UR NEGATIVE (NEGATIVE); PHENCYCLIDINE, UR NEGATIVE (NEGATIVE)
--- NOTE | 2018-04-25 05:50 | CP.PCM.PN ---
<Karrie Mcknight - Last Filed: 04/25/18 05:41> Subjective - Date & Time of Evaluation Date of Evaluation: 04/25/18 Time of Evaluation: 02:31 - Subjective Subjective: 1st Code Angel Luis called at 11:22PM, patient hallucinating that a "boy in under his bed," pacing in the hallways, knocking on patient's doors, verbally abusive to the staff, given geodon 15 mg IM x1. Prior charts reviewed, patient has a history of alcohol abuse, started on CIWA protocol, ativan prn. 1:1 observation ordered (since patient was getting agitated with a person in the room, close observation of the patient from outside the room ordered, communicated with the nurse). Patient pulled out IV line, not allowing nurse to draw labs or insert a new IV. Low potassium, sodium noted from AM, potassium was repleted. Patient refusing stat BMP. - likely alcohol withdrawal vs hospital acquired delirium. 2nd Code Angel Luis called at 2:31 AM, patient states he wants to burn child out from under bed, attempting to leave fully dressed. Given Haldol 10 mg IM. Continue 1:1, fall precautions, CIWA protocol, seizure precautions. Case seen and discussed with Dr Van. Objective - Vital Signs/Intake and Output Vital Signs (last 24 hours): Temp Pulse Resp BP Pulse Ox 98.3 F 89 20 102/65 97 04/24/18 23:43 04/24/18 23:43 04/24/18 23:43 04/24/18 23:43 04/24/18 23:43 Intake and Output: 04/24/18 04/25/18 18:59 06:59 Intake Total 675 Balance 675 - Medications Medications: Current Medications Gabapentin (Neurontin) 300 mg PO Q8H PRN; Protocol PRN Reason: Leg cramps Sodium Chloride (Sodium Chloride 0.9%) 1,000 mls @ 100 mls/hr IV .Q10H PATRICIA Last Admin: 04/24/18 23:48 Dose: Not Given Lorazepam (Ativan) 2 mg IVP Q3H PRN; Protocol PRN Reason: Symptoms of alcohol withdrawl Oxycodone/Acetaminophen (Percocet 10/325 Mg Tab) 1 tab PO TID PRN PRN Reason: Pain, severe (8-10) Quetiapine Fumarate (Seroquel) 100 mg PO HS PATRICIA; Protocol Last Admin: 04/24/18 21:45 Dose: 100 mg - Labs Labs: 04/24/18 06:23 04/24/18 06:23 PT 10.3 SECONDS (9.4-12.5) 04/24/18 06:23 INR 0.90 04/24/18 06:23 APTT 24.4 Seconds (25.1-36.5) L 04/24/18 06:23 <Lucille aVn - Last Filed: 04/25/18 06:24> Objective - Vital Signs/Intake and Output Vital Signs (last 24 hours): Temp Pulse Resp BP Pulse Ox 98.3 F 89 20 102/65 97 04/24/18 23:43 04/24/18 23:43 04/24/18 23:43 04/24/18 23:43 04/24/18 23:43 Intake and Output: 04/24/18 04/25/18 18:59 06:59 Intake Total 675 Balance 675 - Medications Medications: Current Medications Gabapentin (Neurontin) 300 mg PO Q8H PRN; Protocol PRN Reason: Leg cramps Sodium Chloride (Sodium Chloride 0.9%) 1,000 mls @ 100 mls/hr IV .Q10H PATRICIA Last Admin: 04/24/18 23:48 Dose: Not Given Lorazepam (Ativan) 2 mg IVP Q3H PRN; Protocol PRN Reason: Symptoms of alcohol withdrawl Oxycodone/Acetaminophen (Percocet 10/325 Mg Tab) 1 tab PO TID PRN PRN Reason: Pain, severe (8-10) Quetiapine Fumarate (Seroquel) 100 mg PO HS PATRICIA; Protocol Last Admin: 04/24/18 21:45 Dose: 100 mg - Labs Labs: 04/24/18 06:23 04/24/18 06:23 PT 10.3 SECONDS (9.4-12.5) 04/24/18 06:23 INR 0.90 04/24/18 06:23 APTT 24.4 Seconds (25.1-36.5) L 04/24/18 06:23 Attending/Attestation - Attestation I have personally seen and examined this patient.: Yes I have fully participated in the care of the patient.: Yes I have reviewed all pertinent clinical information, including history, physical exam and plan: Yes Notes (Text): 04/25/18 06:24 Patient seen with resident. Agree with history, physical examination, assessment and plan.
[2018-04-25 06:37] LABS: MEAN CORPUSCULAR HGB CONC 33.7 g/dl (31.0-37.0); RBC 4.39 10^6/uL (3.5-6.1); RED CELL DISTRIBUTION WIDTH 13.7 % (11.5-14.5); WHITE BLOOD COUNT 8.9 10^3/uL (4.5-11.0)
[2018-04-25 06:50] LABS: HEMOGLOBIN 13.6 g/dL (14.0-18.0)
[2018-04-25 07:28] LABS: TROPONIN I 0.02 ng/mL
[2018-04-25 07:29] LABS: LDL CHOLESTEROL 121 mg/dL (0-129)
[2018-04-25 07:34] LABS: ALB/GLOB RATIO 1.2 (1.1-1.8); ALBUMIN 4.1 g/dL (3.0-4.8); ALT/SGPT 54 U/L (7-56); AST/SGOT 96 U/L (17-59); BLOOD UREA NITROGEN 28 mg/dL (7-21); CALCIUM 9.1 mg/dL (8.4-10.5); GFR NON-AFRICAN AMERICAN > 60; HDL CHOLESTEROL 92 mg/dL (29-60)
[2018-04-25] MEDS ORDERED: Potassium Phosphate 30 MMOLE in Dextrose 5% In Water 250 ML IVPB ONE (09:47)
--- NOTE | 2018-04-25 09:50 | US ---
PROCEDURE: Bilateral carotid artery duplex ultrasound HISTORY: Carotid stenosis syncope PHYSICIAN(S): Mynor Mejia MD. TECHNIQUE: Duplex sonography and color-flow Doppler were used to evaluate the carotid bifurcations and limited segments of the vertebral arteries bilaterally. FINDINGS: There is mild smooth heterogeneous plaque noted at the carotid bifurcations bilaterally. The peak systolic velocity in the proximal right internal carotid artery is 81 cm/sec. This corresponds to a 20 to 39% proximal right ICA stenosis. Normal systolic velocities are noted in the proximal right external carotid artery. There is antegrade flow in the right vertebral artery. The peak systolic velocity in the proximal left internal carotid artery is 70 cm/sec. This corresponds to a 20 to 39% proximal left ICA stenosis. Normal systolic velocities are noted in the proximal left external carotid artery. There is antegrade flow in the left vertebral artery. IMPRESSION: 1. Bilateral 20-39% proximal ICA stenoses. 2. Antegrade flow in both vertebral arteries.
[2018-04-25] MEDS ORDERED: Potassium Phosphate 30 MMOLE in Sodium Chloride 0.9% 250 ML IVPB ONE (10:00)
--- NOTE | 2018-04-25 10:01 | CP.PCM.PN ---
<Rio Mcrae - Last Filed: 04/25/18 11:33> Subjective - Date & Time of Evaluation Date of Evaluation: 04/25/18 Time of Evaluation: 07:15 - Subjective Subjective: Rio Mcrae PGY2 IM Progress Note for Dr. Bolanos Patient was seen and examined at bedside. He is drowsy after being medicated for agitation that occured overnight. Overnight MD and nursing notes reviewed. The patient became agitated, started hallucinating and became disruptive and dangerous to his roommate and other patients on the floor. Karson gordon was called twice on him, and he required Haldol and tranquilizers to sedate him. The patient remains in restraints for his safety as he seems to be withdrawing from EtOH although he continues to deny use. Etoh level and UDS were sent. Objective - Vital Signs/Intake and Output Vital Signs (last 24 hours): Temp Pulse Resp BP Pulse Ox 98.3 F 71 20 102/65 97 04/24/18 23:43 04/25/18 06:00 04/24/18 23:43 04/24/18 23:43 04/24/18 23:43 - Medications Medications: Current Medications Chlordiazepoxide (Librium) 25 mg PO Q8 [facility]; Protocol Last Admin: 04/25/18 09:20 Dose: Not Given Gabapentin (Neurontin) 300 mg PO Q8H PRN; Protocol PRN Reason: Leg cramps Sodium Chloride (Sodium Chloride 0.9%) 1,000 mls @ 100 mls/hr IV .Q10H PATRICIA Last Admin: 04/24/18 23:48 Dose: Not Given Potassium Phosphate 30 mmole/ (Sodium Chloride) 260 mls @ 42.5 mls/hr IVPB ONCE ONE Stop: 04/25/18 16:07 Lorazepam (Ativan) 2 mg IVP Q3H PRN; Protocol PRN Reason: Symptoms of alcohol withdrawl Last Admin: 04/25/18 09:20 Dose: 2 mg Oxycodone/Acetaminophen (Percocet 10/325 Mg Tab) 1 tab PO TID PRN PRN Reason: Pain, severe (8-10) Quetiapine Fumarate (Seroquel) 100 mg PO HS [facility]; Protocol Last Admin: 04/24/18 21:45 Dose: 100 mg - Labs Labs: 04/25/18 06:00 04/25/18 06:00 PT 10.3 SECONDS (9.4-12.5) 04/24/18 06:23 INR 0.90 04/24/18 06:23 APTT 24.4 Seconds (25.1-36.5) L 04/24/18 06:23 - Constitutional Appears: No Acute Distress, Confused - Head Exam Head Exam: ATRAUMATIC, NORMAL INSPECTION - Eye Exam Eye Exam: Normal appearance, PERRL. absent: Scleral icterus - ENT Exam ENT Exam: Mucous Membranes Moist - Neck Exam Neck Exam: Normal Inspection - Respiratory Exam Respiratory Exam: NORMAL BREATHING PATTERN. absent: Rales, Rhonchi - Cardiovascular Exam Cardiovascular Exam: RRR, +S1, +S2 - GI/Abdominal Exam GI & Abdominal Exam: Soft. absent: Distended, Tenderness - Extremities Exam Extremities Exam: Normal Inspection. absent: Pedal Edema Additional comments: 2 point restraints - Neurological Exam Neurological Exam: Altered (drowsy post sedation) - Skin Skin Exam: Normal Color Assessment and Plan - Assessment and Plan (Free Text) Assessment: 57-year-old male with a PMH of CAD post 3 stents in 1999, depression, L4-L5 herniated disc with radiculopathy admitted for syncope. Hyponatremia and hypochloremic hypokalemic metabolic alkalosis were noted likely due to GI losses. Overnight aggression and agitation could be due to EtOH withdrawal. CAD is stable. Plan: - Ativan PRN - Librium PATRICIA ordered - Psych consulted, recs appreciated - CIWA protocol - banana bag @ 100cc/h - KPhos supplementation - Echo and cartoid US ordered to r/o neuro causes - PT eval ordered - fall risk moderate - seizure precautions - Neurology consulted, recs appreciated - Cardio consulted, recs appreciated - cont Seroquel home dose - cont Gabapentin and Percocet - A1C, TSH and Lipid panel f/u - HHD - low risk for DVT ppx - Further recs per Dr. Bolanos Case was reviewed and discussed with attending, Dr. Cici Mcrae PGY2 <Roverto Bolanos - Last Filed: 04/26/18 12:01> Objective - Vital Signs/Intake and Output Vital Signs (last 24 hours): Temp Pulse Resp BP Pulse Ox 98.6 F 93 H 20 171/41 H 94 L 04/25/18 17:45 04/26/18 06:00 04/25/18 17:45 04/25/18 17:45 04/25/18 17:45 Intake and Output: 04/26/18 04/26/18 06:59 18:59 Intake Total 1320 Balance 1320 - Medications Medications: Current Medications Chlordiazepoxide (Librium) 25 mg PO Q8 [facility]; Protocol Last Admin: 04/26/18 05:08 Dose: Not Given Folic Acid (Folic Acid) 1 mg PO DAILY [facility] Last Admin: 04/26/18 09:02 Dose: Not Given Gabapentin (Neurontin) 300 mg PO Q8H PRN; Protocol PRN Reason: Leg cramps Lorazepam (Ativan) 2 mg IVP Q3H PRN; Protocol PRN Reason: Symptoms of alcohol withdrawl Last Admin: 04/26/18 10:34 Dose: 2 mg Multivitamins/Minerals (Therapeutic-M Tab) 1 tab PO DAILY [facility] Last Admin: 04/26/18 09:02 Dose: Not Given Oxycodone/Acetaminophen (Percocet 10/325 Mg Tab) 1 tab PO TID PRN PRN Reason: Pain, severe (8-10) Potassium Phos/Sodium Phos (Neutra-Phos) 1 pkt PO BID [facility] Stop: 04/29/18 18:01 Quetiapine Fumarate (Seroquel) 50 mg PO AMHS PATRICIA; Protocol Last Admin: 04/26/18 09:02 Dose: Not Given Thiamine HCl (Vitamin B1 Tab) 100 mg PO DAILY [facility] Last Admin: 04/26/18 09:03 Dose: Not Given Ziprasidone (Geodon Inj) 20 mg IM Q6H PRN; Protocol PRN Reason: severe agitaiton/psychosis Last Admin: 04/26/18 02:48 Dose: 20 mg - Labs Labs: 04/25/18 06:00 04/26/18 07:00 PT 10.3 SECONDS (9.4-12.5) 04/24/18 06:23 INR 0.90 04/24/18 06:23 APTT 24.4 Seconds (25.1-36.5) L 04/24/18 06:23 Assessment and Plan - Assessment and Plan (Free Text) Assessment: Pt seen and examined. I have reviewed the note of the medical technologist generalist and agree with it. I have discussed the assessment and plan with the resident. I have reviewed the patient's labs and medications.Pt with ETOH withdrawal and is on Librium. He will be on CILA protocol. He was seen by Neuro. Psych omega. Stan mendosa
[2018-04-25] MEDS: Multivitamin With Minerals Tab PO SCH (11:37)
[2018-04-25] MEDS ORDERED: Multivitamin (MVI) 10 ML, Thiamine 100 MG, Folic Acid 1 MG in Sodium Chloride 0.9% 1,00... IV SCH (11:45)
--- NOTE | 2018-04-25 16:06 | CON ---
DATE: <> HISTORY OF PRESENT ILLNESS: In short, the patient is a 57-year-old male. Patient has multiple medical issues including coronary artery disease, 3 cardiac stents, hyperlipidemia, hypertension, chronic back pain, alcohol abuse. The patient presented to the emergency room for evaluation of near syncopal episode. The patient also was found to have electrolyte imbalance and was admitted to the medical floor with potassium level 2.6, chloride 72, carbon dioxide 39, sodium 128. Overnight, yesterday the patient became very agitated. The patient was hallucinating. The patient was pacing in the room. The patient was looking for "drunk child who is stealing my money." The patient also had hallucination, slamming things. The patient required to be on one to one observation, also restrained upper extremities and multiple IM's were given to the patient including haloperidol 10 mg IM, also 5 mg IM. Also, Geodon was given to the patient 10 mg and 5 mg, altogether 15 mg. Psych consult was called for evaluation of change in mental status and hallucinations. This press writer attempted to speak to the patient. The patient is status post IM, presented to be confused, all answers were not related to the questions being asked. The patient does not know where he is, no option to have meaningful conversation. Discussed with the medical artist. From the medical standpoint, electrolyte imbalance, questionable history of alcohol abuse, most likely the patient started to have alcohol withdrawal delirium. PHYSICAL EXAMINATION: VITAL SIGNS: Reviewed. Temperature 98.3, pulse is 80, blood pressure 102/65, respiration 20, oxygen saturation is 97. MEDICATIONS: Reviewed. The patient is started on Librium 25 mg every 8 hours. The patient is on Neurontin, Ativan 2 mg IV push every 3 hours as needed. The patient is on Percocet, sodium chloride, Seroquel 100 mg we will split 50 mg twice a day, sodium chloride and Geodon will be started 20 mg IM every 6 hours as needed. LABORATORY DATA: Reviewed from today. Potassium is still low but is getting better at 3.2, BUN is 28. The patient's TSH is 5.6. MENTAL STATUS EXAMINATION: As this press writer described above, the patient presented to be very confused, not possible to have meaningful conversation. When this press writer asked how he ended up in the hospital, the patient replied "it is really stupid into sleep". Insight and judgment seems to be impaired. Impulses are not predictable. IMPRESSION: Most likely, the patient has delirium stage which is related to electrolyte imbalance, alcohol withdrawal symptoms cannot be excluded. As per history, the patient has history of depression. His mother recently. The patient was seeing Dr. Alonzo in the [facility]. PLAN: Continue current management. Continue current medications. This press writer will suggest multivitamins, thiamine and folic acid. Seroquel was started 50 mg twice a day, Geodon IM as needed, continue one to one. Dr. Alonzo will follow up on this patient over the weekend. Thank you very much for letting me participate in care of your patient. Should you have any questions, give me a call back. Rosana Rasheed MD [facility]
--- NOTE | 2018-04-25 20:04 | CON ---
DATE: 04/25/2018 CONSULTATION INDICATIONS: Near syncope, chest pain, altered mental status. HISTORY OF PRESENT ILLNESS: This is a 57-year-old man, admitted yesterday through the emergency room with weakness at home, near syncope, brief chest pain. He was found to have hyponatremia and hypokalemia. He underwent evaluation. A CT scan was negative for PE. He was admitted to telemetry. During the night, he became confused, aggressive with hallucinations, and underwent reevaluation. He was sedated. This morning, he is sedated in bed, in no acute distress. The information is from the chart. There is no shortness of breath, orthopnea, PND, palpitations, fever, chills, cough, sputum production, hemoptysis, abdominal pain, nausea, vomiting, diarrhea, constipation or melena reported. PAST MEDICAL HISTORY: Notable for coronary artery disease. He has coronary stents. There is a history of hypertension and hyperlipidemia. He has back pain chronically and diskogenic disease. There is no history of rheumatic fever, myocardial infarction, arrhythmia, stroke, TIA, diabetes or gout. There may be a psych history and ethanolism. MEDICATIONS AT HOME: Gabapentin, oxycodone, and Seroquel. He also uses Percocet. FAMILY HISTORY: Not obtainable. SOCIAL HISTORY: He is a cigarette smoker. He drinks alcohol. REVIEW OF SYSTEMS: Not obtainable. PHYSICAL EXAMINATION: He is a well-developed male, lying in bed, sedated, in no acute distress. He is in sinus rhythm, 71 beats per minute. He is afebrile. Blood pressure 102/65, respirations 20, and O2 sat 95 to 97% on room air. HEENT exam reveals no neck vein distention, thyromegaly, carotid bruits. Mucous membranes moist. Conjunctivae pink. Lung lynch clear. Examination of the heart reveals normal first and second heart sounds. There is a soft systolic murmur along the left sternal border. Abdomen is soft. Bowel sounds present. Extremity exam reveals no cyanosis, clubbing or edema. Neurologically, he is sedated. Skin is warm and dry. No rash or cellulitis. Psychiatric exam, sedated. LABORATORY AND IMAGING STUDIES: A chest x-ray revealed no active disease. A CT scan of the head was negative. A CT scan of the chest showed no evidence of pulmonary embolism. EKG demonstrated regular sinus rhythm, APC, PVC, nonspecific ST wave changes, prolonged QT interval. White count normal, hemoglobin 13.6, hematocrit 40.4, and platelet count normal. PT/INR and PTT unremarkable. D-dimer elevated at 880. Initial sodium 128, repeat 136. Initial potassium 2.6, repeat 3.2. BUN and creatinine are 28 and 1.0 this morning. LFTs are mildly abnormal. Two troponins are negative. Cholesterol 238, LDL 121, HDL 92 and triglycerides 77. TSH is high at 5.6. Urinalysis is noted. Toxicology screen is negative. IMPRESSION/PLAN: The patient is a 57-year-old male with altered mental status, weakness, metabolic abnormalities, acute confusional state with hallucinations, who was admitted to telemetry. He is undergoing neurologic evaluation. He has been sedated. There is no evidence of arrhythmia or acute myocardial infarction. Potassium is being replaced. He is getting IV fluids. He is getting Ativan, Geodon, haloperidol, gabapentin. A carotid ultrasound is ordered. An echocardiogram is ordered. We will monitor inputs and outputs and check stool for occult blood. He is on neuro signs, seizure precautions and has a one-to-one sitter. I will review his old records. I will follow along with you. I will make additional recommendations based on his clinical course. Fredy Trejo MD [facility]
--- NOTE | 2018-04-26 07:32 | CP.PCM.PN ---
Subjective - Date & Time of Evaluation Date of Evaluation: 04/26/18 Time of Evaluation: 07:00 - Subjective Subjective: Stable on 3R. Confused, hallucinations, sedated. 1:1 sitter. V/S noted.RSR/S. tach. PE: Lungs: rhonchi Cor.: S1S2 Abd.: soft Ext.: no edema Neuro.: sedated I/O= 3570/900 Labs 04/25 noted. K+= 3.2 Todays labs pending. Car. U/S: Jozef. 20 - 39% stenoses. Echo: Mod LVD, EF ~ 30%. See full report. Objective - Vital Signs/Intake and Output Vital Signs (last 24 hours): Temp Pulse Resp BP Pulse Ox 98.6 F 93 H 20 171/41 H 94 L 04/25/18 17:45 04/26/18 06:00 04/25/18 17:45 04/25/18 17:45 04/25/18 17:45 Intake and Output: 04/26/18 04/26/18 06:59 18:59 Intake Total 1320 Balance 1320 - Medications Medications: Current Medications Chlordiazepoxide (Librium) 25 mg PO Q8 [facility]; Protocol Last Admin: 04/26/18 05:08 Dose: Not Given Folic Acid (Folic Acid) 1 mg PO DAILY [facility] Last Admin: 04/25/18 11:37 Dose: Not Given Gabapentin (Neurontin) 300 mg PO Q8H PRN; Protocol PRN Reason: Leg cramps Lorazepam (Ativan) 2 mg IVP Q3H PRN; Protocol PRN Reason: Symptoms of alcohol withdrawl Last Admin: 04/26/18 06:46 Dose: 2 mg Multivitamins/Minerals (Therapeutic-M Tab) 1 tab PO DAILY [facility] Last Admin: 04/25/18 11:37 Dose: Not Given Oxycodone/Acetaminophen (Percocet 10/325 Mg Tab) 1 tab PO TID PRN PRN Reason: Pain, severe (8-10) Quetiapine Fumarate (Seroquel) 50 mg PO AMHS [facility]; Protocol Last Admin: 04/25/18 21:54 Dose: Not Given Thiamine HCl (Vitamin B1 Tab) 100 mg PO DAILY [facility] Last Admin: 04/25/18 11:37 Dose: Not Given Ziprasidone (Geodon Inj) 20 mg IM Q6H PRN; Protocol PRN Reason: severe agitaiton/psychosis Last Admin: 04/26/18 02:48 Dose: 20 mg - Labs Labs: 04/25/18 06:00 04/25/18 06:00 PT 10.3 SECONDS (9.4-12.5) 04/24/18 06:23 INR 0.90 04/24/18 06:23 APTT 24.4 Seconds (25.1-36.5) L 04/24/18 06:23 Assessment and Plan - Assessment and Plan (Free Text) Assessment: Syncope at home/Weakness AMS/Delerium/Hallucinations Electrolyte abnormality CAD/PCI/Mod. LVD on echo HBP HLD Discogenic Disease Depression Etoh Plan: As per Psych. and Neuro. Await AM labs. Replace K+ Monitor: I/O, labs, sats., neuro. signs, etc. Will follow.
[2018-04-26 08:48] LABS: BLOOD UREA NITROGEN 14 mg/dL (7-21); GFR NON-AFRICAN AMERICAN > 60
[2018-04-26] MEDS: Multivitamin With Minerals Tab PO SCH (09:02)
--- NOTE | 2018-04-26 09:43 | CARD ---
APPROVED REPORT Date of service: 04/25/2018 EXAM: Two-dimensional and M-mode echocardiogram with Doppler and color Doppler. Other Information Quality : FairRhythm : INDICATION Syncope 2D DIMENSIONS Left Atrium (2D)4.2 (1.6-4.0cm)IVSd0.9 (0.7-1.1cm) LVDd5.1 (3.9-5.9cm)LVOT Diameter1.9 (1.8-2.4cm) PWd0.8 (0.7-1.1cm)LVDs4.4 (2.5-4.0cm) M-Mode DIMENSIONS Aortic Root2.90 (2.2-3.7cm)Aortic Cusp Exc.1.00 (1.5-2.0cm) Aortic Valve AoV Peak Fuvtvzqk279.0cm/sAoV VTI38.1cmAO Peak GR.17mmHg LVOT Peak Xdjjrfsk97.3cm/sLVOT VTI18.80cmAO Mean GR.8mmHg EULALIO (VMAX)1.33im8ZWW (VTI)1.40cm2 Mitral Valve MV E Jhufdtzy11.8cm/sMV A Ifsqzoxs23.5cm/sE/A ratio0.7 TDI Lateral E' Peak V14.40cm/sMedial E' Peak V6.04cm/sE/Lateral E'3.9 E/Medial E'9.2 Pulmonary Valve PV Peak Ssnogmxi25.1cm/sPV Peak Grad.2mmHg Tricuspid Valve TR Peak Idzgmfcb851fu/sRAP MXLZFQAH66jvMqQN Peak Gr.16mmHg [id number] LEFT VENTRICLE The left ventricle is normal size. There is normal left ventricular wall thickness. Left ventricle systolic function is moderately impaired. The Ejection Fraction is 30-35%. There is moderate global hypokinesis. RIGHT VENTRICLE The right ventricle is normal size. ATRIA The left atrium is mildly dilated. The right atrium size is normal. The interatrial septum is intact with no evidence for an atrial septal defect. AORTIC VALVE The aortic valve is moderately calcified. There is mild valvular aortic stenosis. MITRAL VALVE The mitral valve is normal in structure. Mitral regurgitation is trace. TRICUSPID VALVE The tricuspid valve is normal in structure. There is mild tricuspid regurgitation. PULMONIC VALVE The pulmonic valve is not well visualized. GREAT VESSELS The aortic root is normal in size. PERICARDIAL EFFUSION There is no pericardial effusion. <Conclusion> The left ventricle is normal size. There is normal left ventricular wall thickness. Left ventricle systolic function is moderately impaired. The Ejection Fraction is 30-35%. There is moderate global hypokinesis. The aortic valve is moderately calcified.Aortic sclerosis vs. mild . Mitral regurgitation is trace. There is mild tricuspid regurgitation.
[2018-04-26] MEDS ORDERED: Potassium Chloride 20 mEq ER Tab PO ONE (11:05)
--- NOTE | 2018-04-26 11:28 | PN ---
DATE: 04/26/2018 SUBJECTIVE: The patient does not complain of any chest pain. No shortness of breath. No headaches. PHYSICAL EXAMINATION: VITAL SIGNS: Temperature is 98.6, pulse of 93, blood pressure 171/41, respirations 20. GENERAL: The patient is lying in bed, flat, comfortable. HEENT: No oral lesion. Anicteric sclerae. Moist mucosa. NECK: No JVD, adenopathy, or thyromegaly. CARDIOVASCULAR: S1 and S2, regular. No murmurs, rubs, or gallops. LUNGS: Clear to auscultation bilaterally. No wheeze, rales, or rhonchi. ABDOMEN: Bowel sounds are positive, soft, nontender and nondistended. EXTREMITIES: No cyanosis, clubbing or edema. LABORATORY DATA: Labs are pending. Yesterday's potassium was 3.2. CT of the chest done shows no pulmonary embolism. Carotid Dopplers done shows bilateral 20% to 39% proximal arterial stenosis, ____ flow in both vertebral arteries. ASSESSMENT: 1. Hyponatremia. 2. Hypokalemia. 3. Coronary artery disease with stent. 4. L4-L5 disk herniation with radiculopathy. 5. Delirium, possibly from ethanol withdrawal. PLAN: The patient is slow improving. The patient has been started on Seroquel. The patient will be on Geodon p.r.n. The patient was seen by Psychiatry. I appreciate their input. He is also being followed by Dr. Trejo. I did review his note and the echocardigram has been done, and the results are pending. The patient is on folic acid. He is going to continue on Librium. He is going to have repeat blood work done tomorrow. We will continue to follow closely. He is not fully oriented. The patient is confused. He has hallucinations according to the staff. He remains in wrist restraints. Roverto Bolanos MD
[2018-04-26] MEDS: Potassium & Sodium Phosphate PO SCH (17:42)
--- NOTE | 2018-04-27 00:31 | CON ---
DATE: 04/26/2018 The patient is a 57-year-old male with a history of depression. No psychiatric admissions, no reported suicide attempts, whose first outpatient psychiatric treatment with this provider was on 01/08/2018 after his brother recommended that the patient obtain mental health treatment because of symptoms of depression for six [address] Rasheed met with him at bedside yesterday because he was being treated for symptoms of delirium and behavioral disturbance on the medical floor. The patient was continued on Seroquel 50 mg a.m. and h.s. due to the patient's disorganization and paranoia and delusions at that time. 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 At that time, the patient's mother was in subacute rehab. Now, the patient presents overtly disorganized and difficult to manage on the medical floor despite initiation of Seroquel. It does appear that he had been drinking prior to admission. I met with the patient at bedside, he barely recognizes me, and credibility of his responses are questionable; however, the patient does repeatedly indicate that his mother has . Apparently, this occurred on Saturday, and it is quite possible that the patient started drinking after to deal with his grief, which would explain his current presentation after a long gap of reported conservative alcohol use. Regardless, at this time, he continues to be a management problem due to his delirium including his psychosis, and he is totally disoriented at least temporarily by this provider. He remains unpredictable with poor insight and judgment and requires medical and psychiatric care. Vital signs and labs reviewed. MEDICATIONS: Relevant psychiatric medications include Librium 25 mg p.o. every 8 hours, Ativan 2 mg IV every 3 hours p.r.n. symptoms of alcohol withdrawal, Seroquel 50 mg a.m. and h.s. as well as Geodon 20 mg IM every 6 hours p.r.n. which the patient has required due to his agitation. IMPRESSION: Delirium, rule out alcohol withdrawal symptoms as well as history of depression and lability. PLAN: We will continue with Seroquel, however, we will increase dose to 50 mg b.i.d. and 100 mg h.s. for the patient's lability, agitation, and confusion as well as paranoia on the unit. We will also continue with Geodon and Ativan p.r.n. He will continue with the benzo p.r.n., although it might be beneficial for alcohol withdrawal, which he may be suffering from, giving too many benzos will actually cause worsening of delirium and worsening of his disinhibition. Psychiatry will continue to follow up with the patient on a daily basis. The next followup I just provided will be Saturday, on 04/27/2018. Theo Alonzo MD Psychiatric # [id number]
--- NOTE | 2018-04-27 07:25 | CP.PCM.PN ---
Subjective - Date & Time of Evaluation Date of Evaluation: 04/27/18 Time of Evaluation: 07:00 - Subjective Subjective: Stable on 3R. Still confused, hallucinations, sedated. 1:1 sitter. PE: Lungs: rhonchi Cor.: S1S2 Abd.: soft Ext.: no edema Neuro.: sedated I/O= 180/200 recorded Labs 04/26 noted. K+= 3.2 Todays labs pending. Car. U/S: Jozef. 20 - 39% stenoses. Echo: Mod LVD, EF ~ 30 - 35 %. Mild , TR. Objective - Vital Signs/Intake and Output Vital Signs (last 24 hours): Temp Pulse Resp BP Pulse Ox 98.6 F 93 H 20 171/41 H 94 L 04/25/18 17:45 04/26/18 06:00 04/25/18 17:45 04/25/18 17:45 04/25/18 17:45 Intake and Output: 04/27/18 04/27/18 06:59 18:59 Intake Total 180 Output Total 200 Balance -20 - Medications Medications: Current Medications Chlordiazepoxide (Librium) 25 mg PO Q8 [facility]; Protocol Last Admin: 04/27/18 05:51 Dose: 25 mg Folic Acid (Folic Acid) 1 mg PO DAILY [facility] Last Admin: 04/26/18 09:02 Dose: Not Given Gabapentin (Neurontin) 300 mg PO Q8H PRN; Protocol PRN Reason: Leg cramps Lorazepam (Ativan) 2 mg IVP Q3H PRN; Protocol PRN Reason: Symptoms of alcohol withdrawl Last Admin: 04/26/18 17:42 Dose: 2 mg Multivitamins/Minerals (Therapeutic-M Tab) 1 tab PO DAILY [facility] Last Admin: 04/26/18 09:02 Dose: Not Given Oxycodone/Acetaminophen (Percocet 10/325 Mg Tab) 1 tab PO TID PRN PRN Reason: Pain, severe (8-10) Last Admin: 04/26/18 21:35 Dose: 1 tab Potassium Phos/Sodium Phos (Neutra-Phos) 1 pkt PO BID [facility] Stop: 04/29/18 18:01 Last Admin: 04/26/18 17:42 Dose: 1 pkt Quetiapine Fumarate (Seroquel) 50 mg PO BID [facility]; Protocol Last Admin: 04/26/18 17:32 Dose: Not Given Quetiapine Fumarate (Seroquel) 100 mg PO HS [facility]; Protocol Last Admin: 04/26/18 21:34 Dose: 100 mg Thiamine HCl (Vitamin B1 Tab) 100 mg PO DAILY [facility] Last Admin: 04/26/18 09:03 Dose: Not Given Ziprasidone (Geodon Inj) 20 mg IM Q6H PRN; Protocol PRN Reason: severe agitaiton/psychosis Last Admin: 04/26/18 02:48 Dose: 20 mg - Labs Labs: 04/25/18 06:00 04/26/18 07:00 PT 10.3 SECONDS (9.4-12.5) 04/24/18 06:23 INR 0.90 04/24/18 06:23 APTT 24.4 Seconds (25.1-36.5) L 04/24/18 06:23 Assessment and Plan - Assessment and Plan (Free Text) Assessment: Syncope at home/Weakness AMS/Delerium/Hallucinations/Possible ETOH Withdrawl Electrolyte abnormality CAD/PCI/Mod. LVD on echo with mild and TR HBP HLD Discogenic Disease Depression Etoh Plan: As per Psych. and Neuro. and Dr. Bolanos Await AM labs. Replace K+ Monitor: I/O, labs, sats., neuro. signs, etc. Will follow
[2018-04-27] MEDS: Potassium & Sodium Phosphate PO SCH ×2 (09:22→18:28)
[2018-04-27] MEDS: Multivitamin With Minerals Tab PO SCH (09:23)
--- NOTE | 2018-04-27 10:28 | PN ---
DATE: 04/27/2018 SUBJECTIVE: Patient has no complaints of chest pain. No shortness of breath, no headache. He is off his restraints. PHYSICAL EXAMINATION: VITAL SIGNS: Temperature is 98.6, pulse of 97, blood pressure is 171/41, respirations 20, oxygen saturation 94% GENERAL: The patient is lying in bed, flat, comfortable. HEENT: No oral lesion. Anicteric sclerae. Moist mucosa. NECK: No JVD, adenopathy, or thyromegaly. CARDIOVASCULAR: S1 and S2, regular. No murmurs, rubs, or gallops. LUNGS: Clear to auscultation bilaterally. No wheeze, rales, or rhonchi. ABDOMEN: Bowel sounds are positive, soft, nontender and nondistended. EXTREMITIES: No cyanosis, clubbing or edema. LABORATORY DATA: No new labs. ASSESSMENT: 1. Hyponatremia, improved. 2. Hypokalemia, improving. 3. Coronary artery disease with stent. 4. L4-L5 disk herniation with radiculopathy. 5. Delirium due to alcohol withdrawal. 6. Hypophosphatemia. PLAN: Patient is currently comfortable. He is on folic acid. The patient is going to be on Librium for his withdrawal symptoms. Patient is improving. He is not requiring restraints. Patient is on phosphorous replacement. He had low phosphorous on admission. Patient's pain is controlled with Percocet. He does have back issues. Patient is going to continue with thiamine. I did review the patient's notes from Dr. Trejo and Psychiatry. I appreciate their input. The patient is going to physical therapy. He may need transitional care. I have asked Physical Therapy to reevaluate the patient and we will see if he qualifies for transitional care. Roverto Bolanos MD
[2018-04-28 07:18] LABS: HEMOGLOBIN 13.1 g/dL (14.0-18.0); MEAN CELL VOLUME 94.5 fl (80.0-105.0); MEAN CORPUSCULAR HEMOGLOBIN 30.3 pg (25.0-35.0); MEAN PLATELET VOLUME 9.9 fl (7.0-11.0); RBC 4.33 10^6/uL (3.5-6.1); RED CELL DISTRIBUTION WIDTH 14.6 % (11.5-14.5); WHITE BLOOD COUNT 6.5 10^3/uL (4.5-11.0)
--- NOTE | 2018-04-28 07:37 | CP.PCM.PN ---
Subjective - Date & Time of Evaluation Date of Evaluation: 04/28/18 Time of Evaluation: 07:00 - Subjective Subjective: Stable on 3R. Improved mental status now. V/S noted PE: Lungs: few rhonchi Cor.: S1S2 Abd.: soft Ext.: no edema Neuro.: sedated Labs 04/26 noted. K+= 3.2 Todays labs pending. Car. U/S: Jozef. 20 - 39% stenoses. Echo: Mod LVD, EF ~ 30 - 35 %. Mild , TR. Objective - Vital Signs/Intake and Output Vital Signs (last 24 hours): Temp Pulse Resp BP Pulse Ox 98.3 F 79 19 112/67 97 04/27/18 17:07 04/27/18 17:07 04/27/18 17:07 04/27/18 17:07 04/27/18 17:07 Intake and Output: 04/28/18 04/28/18 06:59 18:59 Intake Total 1080 Balance 1080 - Medications Medications: Current Medications Chlordiazepoxide (Librium) 25 mg PO Q8 [facility]; Protocol Last Admin: 04/28/18 05:54 Dose: 25 mg Folic Acid (Folic Acid) 1 mg PO DAILY [facility] Last Admin: 04/27/18 09:22 Dose: 1 mg Gabapentin (Neurontin) 300 mg PO Q8H PRN; Protocol PRN Reason: Leg cramps Multivitamins/Minerals (Therapeutic-M Tab) 1 tab PO DAILY [facility] Last Admin: 04/27/18 09:23 Dose: 1 tab Oxycodone/Acetaminophen (Percocet 10/325 Mg Tab) 1 tab PO TID PRN PRN Reason: Pain, severe (8-10) Last Admin: 04/26/18 21:35 Dose: 1 tab Paroxetine HCl (Paxil) 10 mg PO HS [facility] Last Admin: 04/27/18 22:13 Dose: 10 mg Potassium Phos/Sodium Phos (Neutra-Phos) 1 pkt PO BID [facility] Stop: 04/29/18 18:01 Last Admin: 04/27/18 18:28 Dose: 1 pkt Quetiapine Fumarate (Seroquel) 50 mg PO BID [facility]; Protocol Last Admin: 04/27/18 18:28 Dose: 50 mg Quetiapine Fumarate (Seroquel) 100 mg PO HS [facility]; Protocol Last Admin: 04/27/18 22:13 Dose: 100 mg Thiamine HCl (Vitamin B1 Tab) 100 mg PO DAILY [facility] Last Admin: 04/27/18 09:23 Dose: 100 mg Ziprasidone (Geodon Inj) 20 mg IM Q6H PRN; Protocol PRN Reason: severe agitaiton/psychosis Last Admin: 04/26/18 02:48 Dose: 20 mg - Labs Labs: 04/28/18 06:45 04/26/18 07:00 PT 10.3 SECONDS (9.4-12.5) 04/24/18 06:23 INR 0.90 04/24/18 06:23 APTT 24.4 Seconds (25.1-36.5) L 04/24/18 06:23 Assessment and Plan - Assessment and Plan (Free Text) Assessment: Syncope at home/Weakness AMS/Delerium/Hallucinations/Possible ETOH Withdrawl, improving Electrolyte abnormality CAD/PCI/Mod. LVD on echo with mild and TR HBP HLD Discogenic Disease Depression Etoh Plan: As per Psych. and Neuro. and Dr. Bolanos Await AM labs. Replace K+ OOB as edwina/PT/TCU Eval. Nuclear stress test electively when cleared neurologically
--- NOTE | 2018-04-28 08:23 | CON ---
DATE: 04/27/2018 HISTORY OF PRESENT ILLNESS: The patient is a , 57-year-old male with a history of depression as well as alcohol abuse, who was admitted to the medical floor due to worsening of delirium and behavioral disturbance on the medical floor. Psychiatry has been following the patient for aforementioned symptoms and the patient continued to be quite disoriented, restless, and impulsive up until my visit on 04/26/2018. However, upon reevaluation today, Saturday, the patient appears to be much improved and his delirium symptoms have cleared and he is alert and oriented is well aware of the circumstances and location. The patient reports that he stated almost defensively that he was drinking after his mother past Saturday due to the complications from a hepatic cancer. The patient is believing he has had thoughts of suicide, but he has a daughter to live for and he has a very good relationship with her and this is consistent with the reports he gives me when I evaluated him in my office on 01/08/2018. The patient denies any suicidality, no longer delusional, , affect was constricted, mildly , but he is fairly cooperative and he feels grateful for the intervention. The patient indicated that he is tolerating Seroquel well and he is actually open to initiating an antidepressant at this time to help him with his depression as well as breathing process. We discussed Paxil and the patient consents to initiate this medication and his insight and judgment significantly improved and fair. LABORATORY DATA: Reviewed. VITAL SIGNS: Reviewed. RELEVANT PSYCHIATRIC MEDICATIONS: Include Librium 25 mg p.o. every 8 hours, Ativan 2 mg IV every 3 hours p.r.n., Seroquel 50 mg b.i.d. and 100 mg h.s., and Geodon 20 mg IM every 6 hours p.r.n. IMPRESSION: Resolving delirium, brief reaction as well as history of major depressive disorder, moderate anxiety and mood lability. RECOMMENDATIONS: At this time, I will discontinue Ativan p.r.n. and we will start Paxil 10 mg h.s. I reviewed indication, therapeutic latency, dosing, possible side effects to the patient at bedside this morning and he consents to trial. We will continue the Seroquel 50 mg b.i.d. and 100 mg h.s. Geodon will be continued on a p.r.n. basis. Psychiatry will continue to follow up with the patient daily on the medical floor once the patient is medically stabilized. The patient does not want to be psychiatrically hospitalized and does not meet criteria for psychiatric admission and regarding voluntary status, he will be seen by this provider during outpatient office hours and he was informed that he could follow up with me on anytime between 9 a.m. and 1 p.m. as a walk-in. Otherwise, if the patient is discharged, he should be provided a prescription for Seroquel, Paxil, and tapering dose of Librium that should last until his appointment. Next follow up will be on 04/28/2018, by Dr. Alonzo. Theo Alonzo MD
[2018-04-28 08:49] LABS: BLOOD UREA NITROGEN 14 mg/dL (7-21); GFR NON-AFRICAN AMERICAN > 60
[2018-04-28 08:50] LABS: ALBUMIN 3.1 g/dL (3.0-4.8); ALT/SGPT 45 U/L (7-56); AST/SGOT 46 U/L (17-59); CALCIUM 8.7 mg/dL (8.4-10.5)
[2018-04-28] MEDS: Multivitamin With Minerals Tab PO SCH (09:58)
[2018-04-28] MEDS: Potassium & Sodium Phosphate PO SCH ×2 (09:59→17:49)
--- NOTE | 2018-04-28 13:44 | CP.PCM.PN ---
<Rio Mcrae - Last Filed: 04/28/18 15:45> Subjective - Date & Time of Evaluation Date of Evaluation: 04/28/18 Time of Evaluation: 07:44 - Subjective Subjective: Rio Mcrae PGY2 IM Progress Note for Dr. Bolanos Patient was seen and examined the bedside. He cannot recall any events since his hospital admission. He is surprised when he is told how he was hallucinating and agitated he was. This morning, the patient denies any chest pain, shortness of breath, palpitations/hallucinations, tremors or unsteady gait. PT evaluated the patient and found some unsteady gait with incoordination, and recommended TCU. Nursing notes and chart were reviewed. Objective - Vital Signs/Intake and Output Vital Signs (last 24 hours): Temp Pulse Resp BP Pulse Ox 97.9 F 75 20 125/81 98 04/28/18 06:00 04/28/18 06:00 04/28/18 06:00 04/28/18 06:00 04/28/18 06:00 Intake and Output: 04/28/18 04/28/18 06:59 18:59 Intake Total 1080 Balance 1080 - Medications Medications: Current Medications Chlordiazepoxide (Librium) 50 mg PO DAILY [facility]; Protocol Chlordiazepoxide (Librium) 25 mg PO ONCE ONE; Protocol Stop: 04/28/18 14:01 Last Admin: 04/28/18 13:40 Dose: 25 mg Folic Acid (Folic Acid) 1 mg PO DAILY [facility] Last Admin: 04/28/18 09:58 Dose: 1 mg Gabapentin (Neurontin) 300 mg PO Q12 [facility]; Protocol Multivitamins/Minerals (Therapeutic-M Tab) 1 tab PO DAILY [facility] Last Admin: 04/28/18 09:58 Dose: 1 tab Oxycodone/Acetaminophen (Percocet 10/325 Mg Tab) 1 tab PO TID PRN PRN Reason: Pain, severe (8-10) Last Admin: 04/26/18 21:35 Dose: 1 tab Paroxetine HCl (Paxil) 20 mg PO HS [facility] Potassium Phos/Sodium Phos (Neutra-Phos) 1 pkt PO BID [facility] Stop: 04/29/18 18:01 Last Admin: 04/28/18 09:59 Dose: 1 pkt Quetiapine Fumarate (Seroquel) 100 mg PO HS [facility]; Protocol Last Admin: 04/27/18 22:13 Dose: 100 mg Quetiapine Fumarate (Seroquel) 25 mg PO BID [facility]; Protocol Thiamine HCl (Vitamin B1 Tab) 100 mg PO DAILY [facility] Last Admin: 04/28/18 09:58 Dose: 100 mg Ziprasidone (Geodon Inj) 20 mg IM Q6H PRN; Protocol PRN Reason: severe agitaiton/psychosis Last Admin: 04/26/18 02:48 Dose: 20 mg - Labs Labs: 04/28/18 06:45 04/28/18 06:45 PT 10.3 SECONDS (9.4-12.5) 04/24/18 06:23 INR 0.90 04/24/18 06:23 APTT 24.4 Seconds (25.1-36.5) L 04/24/18 06:23 - Constitutional Appears: Well, Non-toxic, No Acute Distress - Head Exam Head Exam: ATRAUMATIC, NORMAL INSPECTION - Eye Exam Eye Exam: EOMI, Normal appearance Pupil Exam: PERRL - ENT Exam ENT Exam: Mucous Membranes Moist, Normal Exam - Neck Exam Neck Exam: Normal Inspection - Respiratory Exam Respiratory Exam: NORMAL BREATHING PATTERN. absent: Rales, Rhonchi, Wheezes, Respiratory Distress - Cardiovascular Exam Cardiovascular Exam: RRR, +S1, +S2. absent: JVD - GI/Abdominal Exam GI & Abdominal Exam: Soft. absent: Distended, Tenderness - Extremities Exam Extremities Exam: Full ROM, Normal Inspection. absent: Pedal Edema Additional comments: no tremor w/ outstretched hands - Back Exam Back Exam: Full ROM, NORMAL INSPECTION - Neurological Exam Neurological Exam: Alert, Awake, CN II-XII Intact, Oriented x3 - Psychiatric Exam Psychiatric exam: Normal Mood - Skin Skin Exam: Normal Color, Warm Assessment and Plan - Assessment and Plan (Free Text) Assessment: 57-year-old male with a PMH of CAD post 3 stents in 1999, depression, L4-L5 herniated disc with radiculopathy admitted for syncope. Hyponatremia and hypochloremic hypokalemic metabolic alkalosis were noted likely due to GI losses and malnutrition, but have improved. Patient experienced acute delirum due to EtOH withdrawal, but has improved significantly. CAD is stable, but Echo revealed CHF w/ reduced EF (30-35%). Started on Paxil by Psych team. Plan: - cont Librium tapering - cont Paxil - cont Seroquel earline and Geodon PRN - cont MV, thiamine and folic acid supplements - cont Gabapentin and Percocet - cont Neutraphos for electrolyte abnormalities - will f/u psych as outpatient, Dr. Alonzo recommending walk-in clinic at [facility] [place] [place] any 9AM-1PM - No need for psych admission - CIWA protocol - fall risk moderate - seizure precautions - PT eval recommending TCU - Cardio recommending nuclear stress test when cleared - HHD - SCDs for DVT ppx - Further recs per Dr. Bolanos Case was reviewed and discussed with attending, Dr. Cici Mcrae PGY2 <Roverto Bolanos S - Last Filed: 04/28/18 20:48> Objective - Vital Signs/Intake and Output Vital Signs (last 24 hours): Temp Pulse Resp BP Pulse Ox 98.2 F 71 19 112/72 95 04/28/18 17:38 04/28/18 17:38 04/28/18 17:38 04/28/18 17:38 04/28/18 17:38 Intake and Output: 04/28/18 04/29/18 18:59 06:59 Intake Total 1620 Balance 1620 - Medications Medications: Current Medications Chlordiazepoxide (Librium) 50 mg PO DAILY [facility]; Protocol Folic Acid (Folic Acid) 1 mg PO DAILY [facility] Last Admin: 04/28/18 09:58 Dose: 1 mg Gabapentin (Neurontin) 300 mg PO Q12 [facility]; Protocol Multivitamins/Minerals (Therapeutic-M Tab) 1 tab PO DAILY [facility] Last Admin: 04/28/18 09:58 Dose: 1 tab Oxycodone/Acetaminophen (Percocet 10/325 Mg Tab) 1 tab PO TID PRN PRN Reason: Pain, severe (8-10) Last Admin: 04/26/18 21:35 Dose: 1 tab Paroxetine HCl (Paxil) 20 mg PO HS [facility] Potassium Phos/Sodium Phos (Neutra-Phos) 1 pkt PO BID [facility] Stop: 04/29/18 18:01 Last Admin: 04/28/18 17:49 Dose: 1 pkt Quetiapine Fumarate (Seroquel) 100 mg PO HS [facility]; Protocol Last Admin: 04/27/18 22:13 Dose: 100 mg Quetiapine Fumarate (Seroquel) 25 mg PO BID [facility]; Protocol Last Admin: 04/28/18 17:49 Dose: 25 mg Thiamine HCl (Vitamin B1 Tab) 100 mg PO DAILY [facility] Last Admin: 04/28/18 09:58 Dose: 100 mg Ziprasidone (Geodon Inj) 20 mg IM Q6H PRN; Protocol PRN Reason: severe agitaiton/psychosis Last Admin: 04/26/18 02:48 Dose: 20 mg - Labs Labs: 04/28/18 06:45 04/28/18 06:45 PT 10.3 SECONDS (9.4-12.5) 04/24/18 06:23 INR 0.90 04/24/18 06:23 APTT 24.4 Seconds (25.1-36.5) L 04/24/18 06:23 Assessment and Plan - Assessment and Plan (Free Text) Assessment: Pt seen and examined by me. I have reviewed the note by the medical hospital sales. The case was discussed and reviewed with the resident. I reviewed the medications and labs. Pt with improvement of his Delerium from ETOH withdrawl. He is not ambulating and will need PT. I have discontinued his 1:1 sitter. Phosp is improved. Will taper Librium. Will get TCU evaluation done.
--- NOTE | 2018-04-28 21:48 | CON ---
DATE: HISTORY OF PRESENT ILLNESS: Patient is a 57-year-old male with a history of depression as well as alcohol abuse, who was admitted to the medical floor because of delirium. Psychiatry has been following the patient because of his delirium and behavior disturbance on the medical floor which appears to have improved acutely by Saturday. I met with the patient at bedside again today and he is consistently improved and alert with orientation, and he is well aware of circumstances and location, month and year. The patient has no episodes of hallucinations recently. He denies any suicidal thoughts and has been tolerating Seroquel very well as he feels its continues to be beneficial. He also tolerated Paxil dose last night. He does indicate that his Seroquel dose is little too high and he is going to decrease the dose and I feel comfortable with that as he remains coherent and questioning. There have been no major behavioral issues on the unit in the last 24 to 48 hours. Labs and vitals were reviewed. Relevant psychiatric medications include Librium 50 mg daily, Paxil 10 mg at bedtime, Seroquel 100 at bedtime and 50 b.i.d. and Geodon 20 mg IM every 6 hours p.r.n. IMPRESSION: Major depressive disorder, moderate as well as anxiety disorder as well as resolving delirium and alcohol abuse. RECOMMENDATIONS: We will decrease Seroquel to 25 mg p.o. b.i.d. as the patient is much calmer and then coherent and then oriented on the unit. We will continue Seroquel 100 at bedtime. We will increase Paxil to 20 mg at bedtime which is minimal therapeutic dose for depression and anxiety, because this is SSRI, patient is tolerating well. Lastly, the patient is cleared from a psychiatric standpoint; however, this provider will continue follow up the patient while he is medically hospitalized as he is my patient on an outpatient basis. I have recommended that the patient does follow up with me this provided he has been discharged, anytime between 9 a.m. and 1 p.m. as a walk-in and the patient appears to be in agreement. In the meantime, I will continue to follow up while he is being medically stabilized in the unit. Theo Alonzo MD [facility] # [id number]
[2018-04-29 08:32] VITALS: RESP 20
[2018-04-29] MEDS: Potassium & Sodium Phosphate PO SCH ×2 (10:10→17:59)
[2018-04-29] MEDS: Multivitamin With Minerals Tab PO SCH (10:10)
--- NOTE | 2018-04-29 17:20 | CP.PCM.PN ---
<Rio Mcrae - Last Filed: 04/29/18 17:21> Subjective - Date & Time of Evaluation Date of Evaluation: 04/29/18 Time of Evaluation: 07:20 - Subjective Subjective: Rio Mcrae PGY2 IM Progress Note for Dr. Bolanos Patient was seen and examined the bedside. There were no acute overnight events. This morning, the patient denies any chest pain, shortness of breath, palpitations/hallucinations, tremors or unsteady gait. Discharge is pending TCU Eval for further rehab as patient has unsteady gait as noted by PT. Nursing notes and chart were reviewed. Objective - Vital Signs/Intake and Output Vital Signs (last 24 hours): Temp Pulse Resp BP Pulse Ox 97.5 F L 77 20 125/75 97 04/29/18 08:31 04/29/18 08:31 04/29/18 08:31 04/29/18 08:31 04/29/18 08:31 Intake and Output: 04/29/18 04/29/18 06:59 18:59 Intake Total 120 Balance 120 - Medications Medications: Current Medications Chlordiazepoxide (Librium) 25 mg PO DAILY [facility]; Protocol Folic Acid (Folic Acid) 1 mg PO DAILY [facility] Last Admin: 04/29/18 10:11 Dose: 1 mg Gabapentin (Neurontin) 300 mg PO Q12 [facility]; Protocol Last Admin: 04/29/18 10:11 Dose: 300 mg Multivitamins/Minerals (Therapeutic-M Tab) 1 tab PO DAILY [facility] Last Admin: 04/29/18 10:10 Dose: 1 tab Oxycodone/Acetaminophen (Percocet 10/325 Mg Tab) 1 tab PO TID PRN PRN Reason: Pain, severe (8-10) Last Admin: 04/26/18 21:35 Dose: 1 tab Paroxetine HCl (Paxil) 20 mg PO HS [facility] Last Admin: 04/28/18 23:53 Dose: 20 mg Potassium Phos/Sodium Phos (Neutra-Phos) 1 pkt PO BID [facility] Stop: 04/29/18 18:01 Last Admin: 04/29/18 10:10 Dose: 1 pkt Quetiapine Fumarate (Seroquel) 100 mg PO HS [facility]; Protocol Last Admin: 04/28/18 23:52 Dose: 100 mg Quetiapine Fumarate (Seroquel) 25 mg PO BID [facility]; Protocol Last Admin: 04/29/18 10:11 Dose: 25 mg Thiamine HCl (Vitamin B1 Tab) 100 mg PO DAILY [facility] Last Admin: 04/29/18 10:16 Dose: 100 mg Ziprasidone (Geodon Inj) 20 mg IM Q6H PRN; Protocol PRN Reason: severe agitaiton/psychosis Last Admin: 04/26/18 02:48 Dose: 20 mg - Labs Labs: 04/28/18 06:45 04/28/18 06:45 PT 10.3 SECONDS (9.4-12.5) 04/24/18 06:23 INR 0.90 04/24/18 06:23 APTT 24.4 Seconds (25.1-36.5) L 04/24/18 06:23 - Additional Findings Additional findings: 57-year-old male with a PMH of CAD post 3 stents in 1999, depression, L4-L5 herniated disc with radiculopathy admitted for syncope. Hyponatremia and hy pochloremic hypokalemic metabolic alkalosis were noted likely due to GI losses and malnutrition, but have improved. Patient experienced acute delirum due to EtOH withdrawal, but has resolved. CAD is stable, but Echo revealed CHF w/ reduced EF (30-35%). Started on Paxil by Psych team. Plan: - cont Librium tapering - cont Paxil - cont Seroquel earline and Geodon PRN - cont MV, thiamine and folic acid supplements - cont Gabapentin and Percocet - cont Neutraphos for electrolyte abnormalities - will f/u psych as outpatient, Dr. Alonzo recommending walk-in clinic at [facility] [place] any 9AM-1PM - No need for psych admission - CIWA protocol - fall risk moderate - seizure precautions - PT eval recommending TCU evaluation - Cardio recommending nuclear stress test when cleared - HHD - SCDs for DVT ppx - Further recs per Dr. Bolanos Case was reviewed and discussed with attending, Dr. Cici Mcrae PGY2 <Roverto Bolanos - Last Filed: 04/29/18 20:07> Objective - Vital Signs/Intake and Output Vital Signs (last 24 hours): Temp Pulse Resp BP Pulse Ox 97.7 F 71 20 100/59 L 99 04/29/18 18:00 04/29/18 18:00 04/29/18 18:00 04/29/18 18:00 04/29/18 18:00 - Medications Medications: Current Medications Chlordiazepoxide (Librium) 25 mg PO DAILY [facility]; Protocol Folic Acid (Folic Acid) 1 mg PO DAILY [facility] Last Admin: 04/29/18 10:11 Dose: 1 mg Gabapentin (Neurontin) 300 mg PO Q12 [facility]; Protocol Last Admin: 04/29/18 10:11 Dose: 300 mg Multivitamins/Minerals (Therapeutic-M Tab) 1 tab PO DAILY [facility] Last Admin: 04/29/18 10:10 Dose: 1 tab Oxycodone/Acetaminophen (Percocet 10/325 Mg Tab) 1 tab PO TID PRN PRN Reason: Pain, severe (8-10) Last Admin: 04/26/18 21:35 Dose: 1 tab Paroxetine HCl (Paxil) 20 mg PO HS [facility] Last Admin: 04/28/18 23:53 Dose: 20 mg Quetiapine Fumarate (Seroquel) 100 mg PO HS [facility]; Protocol Last Admin: 04/28/18 23:52 Dose: 100 mg Quetiapine Fumarate (Seroquel) 25 mg PO BID [facility]; Protocol Last Admin: 04/29/18 17:58 Dose: 25 mg Thiamine HCl (Vitamin B1 Tab) 100 mg PO DAILY [facility] Last Admin: 04/29/18 10:16 Dose: 100 mg Ziprasidone (Geodon Inj) 20 mg IM Q6H PRN; Protocol PRN Reason: severe agitaiton/psychosis Last Admin: 04/26/18 02:48 Dose: 20 mg - Labs Labs: 04/28/18 06:45 04/28/18 06:45 PT 10.3 SECONDS (9.4-12.5) 04/24/18 06:23 INR 0.90 04/24/18 06:23 APTT 24.4 Seconds (25.1-36.5) L 04/24/18 06:23 - Additional Findings Additional findings: Pt seen and examined. I have reviewed the note of the medical administrative assistant and agree with it. I have discussed the assessment and plan with the resident. I have reviewed the patient's labs and medications. Pt with no withdrawl. He is waiting to be evaluated by TCU. He is unsteady on his feet. He has been advised to stop drinking. He is on Seoquel. Electrolytes have improved. EF is 35 % due to ETOH most likely. Back pain is controlled.
--- NOTE | 2018-04-29 19:28 | CON ---
DATE: 04/29/2018 HISTORY OF PRESENT ILLNESS: The patient is a 57-year-old male, with a history of depression as well as alcohol abuse who is admitted to the medical floor because of delirium. Psychiatry has been following up with the patient due to delirium and behavioral disturbance on the medical floor. these symptoms were improved acutely by Saturday and his provider has visited with him on two other occasions including today and his mental status remains consistently improved. He was nourished and groomed while he was at bedside this morning. He continues to be aware of circumstances, month, year and location. 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 The patient denies any hopelessness or suicidal thoughts, denies any wishes. He wants to improve including his mental and physical health. He is tolerating the medications including Seroquel and Paxil, current doses, denies any side effects from them, this provider wants to continue with them. The patient is coherent, logical, goal directed, no longer hallucinating and delusions, does not appear overtly paranoid and has been in good control with much improved insight and judgment. VITAL SIGNS/LABS: Were reviewed. MEDICATIONS INCLUDED: Relevant medications include Librium 50 mg daily, Paxil 20 mg h.s., Seroquel 100 h.s. and Seroquel 25 mg b.i.d. and Geodon 20 mg IM q.6 p.r.n. which the patient has not received any doses since the 26/04/2018. IMPRESSION: His delirium is resolved. Major depressive disorder moderate as well as grief reaction. Alcohol abuse. RECOMMENDATIONS: At this time, this provider will not make any further changes to patient's psychiatric medication regimen, there is no acute indication at this time. Psychiatry will meet with him on if he continues to be hospitalized, however if he is discharged prior to that, he reports that he will follow up at [facility] with this provider Dr. Alonzo at 9 AM on 05/01/2018 for psychiatric treatment. Otherwise please provide the patient a prescription for Seroquel and Paxil to last him for at least a week once he is discharged. Again, the patient is psychiatrically cleared on our end. Theo Alonzo MD
[2018-04-30 08:21] VITALS: BP 126/69; PULSE 60; TEMP 97.6; O2SAT 96
--- NOTE | 2018-04-30 09:59 | CP.PCM.DIS ---
<Rio Mcrae - Last Filed: 04/30/18 16:49> Provider - Provider Date of Admission: 04/26/18 07:24 Attending physician: Roverto Bolanos MD Primary care physician: Reginald Mckee DO Time Spent in preparation of Discharge (in minutes): 35 Hospital Course - Lab Results Lab Results: Most Recent Lab Values WBC 6.5 10^3/uL (4.5-11.0) D 04/28/18 06:45 RBC 4.33 10^6/uL (3.5-6.1) 04/28/18 06:45 Hgb 13.1 g/dL (14.0-18.0) L 04/28/18 06:45 Hct 40.9 % (42.0-52.0) L 04/28/18 06:45 MCV 94.5 fl (80.0-105.0) 04/28/18 06:45 MCH 30.3 pg (25.0-35.0) 04/28/18 06:45 MCHC 32.0 g/dl (31.0-37.0) 04/28/18 06:45 RDW 14.6 % (11.5-14.5) H 04/28/18 06:45 Plt Count 177 10^3/uL (120.0-450.0) 04/28/18 06:45 MPV 9.9 fl (7.0-11.0) 04/28/18 06:45 Gran % 68.3 % (50.0-68.0) H 04/24/18 06:23 Lymph % (Auto) 18.8 % (22.0-35.0) L 04/24/18 06:23 [place] % (Auto) 12.3 % (1.0-6.0) H 04/24/18 06:23 Eos % (Auto) 0.4 % (1.5-5.0) L 04/24/18 06:23 Baso % (Auto) 0.2 % (0.0-3.0) 04/24/18 06:23 Gran # 5.81 (1.4-6.5) 04/24/18 06:23 Lymph # (Auto) 1.6 (1.2-3.4) 04/24/18 06:23 [place] # (Auto) 1.1 (0.1-0.6) H 04/24/18 06:23 Eos # (Auto) 0.0 (0.0-0.7) 04/24/18 06:23 Baso # (Auto) 0.02 K/mm3 (0.0-2.0) 04/24/18 06:23 PT 10.3 SECONDS (9.4-12.5) 04/24/18 06:23 INR 0.90 04/24/18 06:23 APTT 24.4 Seconds (25.1-36.5) L 04/24/18 06:23 D-Dimer, Quantitative 880 ng/mlDDU (0-243) H 04/24/18 06:23 Sodium 135 mmol/L (132-148) 04/28/18 06:45 Potassium 3.6 mmol/L (3.6-5.0) 04/28/18 06:45 Chloride 103 mmol/L (98-107) 04/28/18 06:45 Carbon Dioxide 25 mmol/L (21-33) 04/28/18 06:45 Anion Gap 11 (10-20) 04/28/18 06:45 BUN 14 mg/dL (7-21) 04/28/18 06:45 Creatinine 0.9 mg/dl (0.8-1.5) 04/28/18 06:45 Est GFR ( Amer) > 60 04/28/18 06:45 Est GFR (Non-Af Amer) > 60 04/28/18 06:45 Random Glucose 144 mg/dL (70-110) H 04/28/18 06:45 Hemoglobin A1c 5.7 % (4.2-6.5) 04/25/18 06:00 Serum Osmolality 275 mosm/kg (272-300) 04/24/18 06:32 Calcium 8.7 mg/dL (8.4-10.5) 04/28/18 06:45 Phosphorus 2.8 mg/dL (2.5-4.5) 04/28/18 06:45 Magnesium 2.2 mg/dL (1.7-2.2) 04/28/18 06:45 Total Bilirubin 0.6 mg/dL (0.2-1.3) 04/28/18 06:45 AST 46 U/L (17-59) 04/28/18 06:45 ALT 45 U/L (7-56) 04/28/18 06:45 Alkaline Phosphatase 67 U/L (38-126) 04/28/18 06:45 Lactate Dehydrogenase 583 U/L (333-699) 04/24/18 06:23 Total Creatine Kinase 507 U/L (35-230) H 04/24/18 06:23 CK-MB (CK-2) 2.4 ng/mL (0.0-3.6) 04/24/18 06:23 CK-MB (CK-2) % Cancelled 04/24/18 06:23 Troponin I 0.02 ng/mL D 04/25/18 06:00 Total Protein 6.2 g/dL (5.8-8.3) 04/28/18 06:45 Albumin 3.1 g/dL (3.0-4.8) 04/28/18 06:45 Globulin 3.1 gm/dL 04/28/18 06:45 Albumin/Globulin Ratio 1.0 (1.1-1.8) L 04/28/18 06:45 Triglycerides 77 mg/dL (35-160) 04/25/18 06:00 Cholesterol 238 mg/dL (130-200) H 04/25/18 06:00 LDL Cholesterol Direct 121 mg/dL (0-129) 04/25/18 06:00 HDL Cholesterol 92 mg/dL (29-60) H 04/25/18 06:00 TSH 3rd Generation 5.60 mIU/mL (0.46-4.68) H 04/25/18 06:00 Urine Color Yellow (YELLOW) 04/24/18 14:00 Urine Appearance Clear (CLEAR) 04/24/18 14:00 Urine pH 6.5 (4.7-8.0) 04/24/18 14:00 Ur Specific [place] 1.010 (1.005-1.035) 04/24/18 14:00 Urine Protein Trace mg/dL (<30 mg/dL) H 04/24/18 14:00 Urine Glucose (UA) Negative mg/dL (NEGATIVE) 04/24/18 14:00 Urine Ketones Negative mg/dL (NEGATIVE) 04/24/18 14:00 Urine Blood Negative (NEGATIVE) 04/24/18 14:00 Urine Nitrate Negative (NEGATIVE) 04/24/18 14:00 Urine Bilirubin Negative (NEGATIVE) 04/24/18 14:00 Urine Urobilinogen 0.2 E.U./dL (<1 E.U./dL) 04/24/18 14:00 Ur Leukocyte Esterase Negative Kaylah/uL (NEGATIVE) 04/24/18 14:00 Urine RBC 0 - 2 /hpf (0-2) 04/24/18 14:00 Urine WBC 0 - 2 /hpf (0-6) 04/24/18 14:00 Ur Epithelial Cells None /hpf (0-5) 04/24/18 14:00 Urine Bacteria Many (NEG) 04/24/18 14:00 Urine Osmolality 791 mosm/kg (300-1000) 04/24/18 21:12 Ur Random Sodium 11 meq/L 04/24/18 21:12 Urine Opiates Screen Negative (NEGATIVE) 04/24/18 21:12 Urine Methadone Screen Negative (NEGATIVE) 04/24/18 21:12 Ur Barbiturates Screen Negative (NEGATIVE) 04/24/18 21:12 Ur Phencyclidine Scrn Negative (NEGATIVE) 04/24/18 21:12 Ur Amphetamines Screen Negative (NEGATIVE) 04/24/18 21:12 U Benzodiazepines Scrn Negative (NEGATIVE) 04/24/18 21:12 U Oth Cocaine Metabols Negative (NEGATIVE) 04/24/18 21:12 U Cannabinoids Screen Negative (NEGATIVE) 04/24/18 21:12 Alcohol, Quantitative < 10 mg/dL (0-10) 04/24/18 06:30 - Hospital Course Hospital Course: 49-year-old male with a PMH of CAD post 3 stents (1999), depression on Seroquel, L4-L5 herniated disc with radiculopathy on chronic pain medication who was admitted for questionable syncopal episode. Hyponatremia and hypochloremic hypokalemic metabolic alkalosis were noted on admission, later found to be a result of alcohol abuse. During hospital stay, the patient experienced acute delirium due to EtOH withdrawal (UDS negative), and required psych consult and restraints, Geodon PRN and 1:1 sitter for 2 days for his safety and safety of other patients. Patient received a Librium taper, and CIWA protocol was carried out. Per psych recommendations, he will be continued on Seroquel as scheduled. The patient improved, and was evaluated by PT for placement. The patient will be discharged to home with services (visitin nurses arranged by MARGARET), and has an appointment with Dr. Alonzo (psych) the next day, 05/01 at 9 AM at the [facility] clinic. The patient will be continued on Seroquel and Paxil which was added during hospital stay, and was prescribed MV, thiamine and folic acid. The patient will follow up with PMD Dr. Bolanos within 2 weeks. Discharge Exam - Head Exam Head Exam: ATRAUMATIC, NORMAL INSPECTION - Eye Exam Eye Exam: EOMI, Normal appearance, PERRL Pupil Exam: NORMAL ACCOMODATION - ENT Exam ENT Exam: Mucous Membranes Moist, Normal External Ear Exam, Normal Oropharynx - Neck Exam Neck exam: Normal Inspection - Respiratory Exam Respiratory Exam: NORMAL BREATHING PATTERN. absent: Rales, Rhonchi, Wheezes - Cardiovascular Exam Cardiovascular Exam: RRR, +S1, +S2 - GI/Abdominal Exam GI & Abdominal Exam: Normal Bowel Sounds, Soft. absent: Distended, Tenderness - Extremities Exam Extremities exam: full ROM, normal inspection, pedal pulses present - Back Exam Back exam: NORMAL INSPECTION - Neurological Exam Neurological exam: Alert, CN II-XII Intact, Normal Gait, Oriented x3 - Skin Skin Exam: Normal Color, Warm Discharge Plan - Discharge Medications Prescriptions: RX: Folic Acid 1 mg PO DAILY #15 tab PARoxetine [Paxil] 20 mg PO HS #30 tab RX: QUEtiapine [Seroquel] 100 mg PO HS #30 tab RX: Multimineral/Multivitamin [Therapeutic-M Tab] 1 tab PO DAILY #15 tab RX: Thiamine [Vitamin B1 Tab] 100 mg PO DAILY #15 tab - Follow Up Plan Condition: FAIR Disposition: HOME/ ROUTINE Instructions: Hyponatremia (DC), Hyponatremia (DC), Syncope (DC) Additional Instructions: - you will receive home with visiting nurse services - please continue medications as prescribed - please follow-up with Dr. Alonzo on Saturday05/01/18 at [facility] clinic at 9AM - please follow-up with Dr. Bolanos within 2 weeks Referrals: Roverto Bolanos MD [Staff Provider] - Reginald Mckee DO [Primary Care Provider] - Theo Alonzo MD [Staff Provider] - <Roverto Bolanos - Last Filed: 04/30/18 19:39> Provider - Provider Date of Admission: 04/26/18 07:24 Attending physician: Roverto Bolanos MD Primary care physician: Reginald Mckee [facility] Course - Lab Results Lab Results: Most Recent Lab Values WBC 6.5 10^3/uL (4.5-11.0) D 04/28/18 06:45 RBC 4.33 10^6/uL (3.5-6.1) 04/28/18 06:45 Hgb 13.1 g/dL (14.0-18.0) L 04/28/18 06:45 Hct 40.9 % (42.0-52.0) L 04/28/18 06:45 MCV 94.5 fl (80.0-105.0) 04/28/18 06:45 MCH 30.3 pg (25.0-35.0) 04/28/18 06:45 MCHC 32.0 g/dl (31.0-37.0) 04/28/18 06:45 RDW 14.6 % (11.5-14.5) H 04/28/18 06:45 Plt Count 177 10^3/uL (120.0-450.0) 04/28/18 06:45 MPV 9.9 fl (7.0-11.0) 04/28/18 06:45 Gran % 68.3 % (50.0-68.0) H 04/24/18 06:23 Lymph % (Auto) 18.8 % (22.0-35.0) L 04/24/18 06:23 [place] % (Auto) 12.3 % (1.0-6.0) H 04/24/18 06:23 Eos % (Auto) 0.4 % (1.5-5.0) L 04/24/18 06:23 Baso % (Auto) 0.2 % (0.0-3.0) 04/24/18 06:23 Gran # 5.81 (1.4-6.5) 04/24/18 06:23 Lymph # (Auto) 1.6 (1.2-3.4) 04/24/18 06:23 [place] # (Auto) 1.1 (0.1-0.6) H 04/24/18 06:23 Eos # (Auto) 0.0 (0.0-0.7) 04/24/18 06:23 Baso # (Auto) 0.02 K/mm3 (0.0-2.0) 04/24/18 06:23 PT 10.3 SECONDS (9.4-12.5) 04/24/18 06:23 INR 0.90 04/24/18 06:23 APTT 24.4 Seconds (25.1-36.5) L 04/24/18 06:23 D-Dimer, Quantitative 880 ng/mlDDU (0-243) H 04/24/18 06:23 Sodium 135 mmol/L (132-148) 04/28/18 06:45 Potassium 3.6 mmol/L (3.6-5.0) 04/28/18 06:45 Chloride 103 mmol/L (98-107) 04/28/18 06:45 Carbon Dioxide 25 mmol/L (21-33) 04/28/18 06:45 Anion Gap 11 (10-20) 04/28/18 06:45 BUN 14 mg/dL (7-21) 04/28/18 06:45 Creatinine 0.9 mg/dl (0.8-1.5) 04/28/18 06:45 Est GFR ( Amer) > 60 04/28/18 06:45 Est GFR (Non-Af Amer) > 60 04/28/18 06:45 Random Glucose 144 mg/dL (70-110) H 04/28/18 06:45 Hemoglobin A1c 5.7 % (4.2-6.5) 04/25/18 06:00 Serum Osmolality 275 mosm/kg (272-300) 04/24/18 06:32 Calcium 8.7 mg/dL (8.4-10.5) 04/28/18 06:45 Phosphorus 2.8 mg/dL (2.5-4.5) 04/28/18 06:45 Magnesium 2.2 mg/dL (1.7-2.2) 04/28/18 06:45 Total Bilirubin 0.6 mg/dL (0.2-1.3) 04/28/18 06:45 AST 46 U/L (17-59) 04/28/18 06:45 ALT 45 U/L (7-56) 04/28/18 06:45 Alkaline Phosphatase 67 U/L (38-126) 04/28/18 06:45 Lactate Dehydrogenase 583 U/L (333-699) 04/24/18 06:23 Total Creatine Kinase 507 U/L (35-230) H 04/24/18 06:23 CK-MB (CK-2) 2.4 ng/mL (0.0-3.6) 04/24/18 06:23 CK-MB (CK-2) % Cancelled 04/24/18 06:23 Troponin I 0.02 ng/mL D 04/25/18 06:00 Total Protein 6.2 g/dL (5.8-8.3) 04/28/18 06:45 Albumin 3.1 g/dL (3.0-4.8) 04/28/18 06:45 Globulin 3.1 gm/dL 04/28/18 06:45 Albumin/Globulin Ratio 1.0 (1.1-1.8) L 04/28/18 06:45 Triglycerides 77 mg/dL (35-160) 04/25/18 06:00 Cholesterol 238 mg/dL (130-200) H 04/25/18 06:00 LDL Cholesterol Direct 121 mg/dL (0-129) 04/25/18 06:00 HDL Cholesterol 92 mg/dL (29-60) H 04/25/18 06:00 TSH 3rd Generation 5.60 mIU/mL (0.46-4.68) H 04/25/18 06:00 Urine Color Yellow (YELLOW) 04/24/18 14:00 Urine Appearance Clear (CLEAR) 04/24/18 14:00 Urine pH 6.5 (4.7-8.0) 04/24/18 14:00 Ur Specific [place] 1.010 (1.005-1.035) 04/24/18 14:00 Urine Protein Trace mg/dL (<30 mg/dL) H 04/24/18 14:00 Urine Glucose (UA) Negative mg/dL (NEGATIVE) 04/24/18 14:00 Urine Ketones Negative mg/dL (NEGATIVE) 04/24/18 14:00 Urine Blood Negative (NEGATIVE) 04/24/18 14:00 Urine Nitrate Negative (NEGATIVE) 04/24/18 14:00 Urine Bilirubin Negative (NEGATIVE) 04/24/18 14:00 Urine Urobilinogen 0.2 E.U./dL (<1 E.U./dL) 04/24/18 14:00 Ur Leukocyte Esterase Negative Kaylah/uL (NEGATIVE) 04/24/18 14:00 Urine RBC 0 - 2 /hpf (0-2) 04/24/18 14:00 Urine WBC 0 - 2 /hpf (0-6) 04/24/18 14:00 Ur Epithelial Cells None /hpf (0-5) 04/24/18 14:00 Urine Bacteria Many (NEG) 04/24/18 14:00 Urine Osmolality 791 mosm/kg (300-1000) 04/24/18 21:12 Ur Random Sodium 11 meq/L 04/24/18 21:12 Urine Opiates Screen Negative (NEGATIVE) 04/24/18 21:12 Urine Methadone Screen Negative (NEGATIVE) 04/24/18 21:12 Ur Barbiturates Screen Negative (NEGATIVE) 04/24/18 21:12 Ur Phencyclidine Scrn Negative (NEGATIVE) 04/24/18 21:12 Ur Amphetamines Screen Negative (NEGATIVE) 04/24/18 21:12 U Benzodiazepines Scrn Negative (NEGATIVE) 04/24/18 21:12 U Oth Cocaine Metabols Negative (NEGATIVE) 04/24/18 21:12 U Cannabinoids Screen Negative (NEGATIVE) 04/24/18 21:12 Alcohol, Quantitative < 10 mg/dL (0-10) 04/24/18 06:30 - Hospital Course Hospital Course: Pt seen and examined. I have reviewed the note of the medical doctor and agree with it. I have discussed the assessment and plan with the resident. I have reviewed the patient's labs and medications. Pt is feeling well. and ambulating. He was advised not to drink anymore.He will be discharged home. Electrolytes are back to normal. He will follow up with psych.
[2018-04-30] MEDS: Multivitamin With Minerals Tab PO SCH (10:07)
== END 2018-04-30 11:38 | disposition home health service (06) | DRG 750 ==
LOC: ED 05:55 → ERH 08:39 → 3RSO 12:01 → OBSVTOIN 04-26 07:24
PROVIDERS: ADMIT Internal Medicine Nephrology; ATTEND Internal Medicine Nephrology
DX: F10.231 Alcohol dependence with withdrawal delirium (principal); E87.8 Other disorders of electrolyte and fluid balance, not elsewhere classified; E87.6 Hypokalemia; E87.1 Hypo-osmolality and hyponatremia; E87.3 Alkalosis; E46 Unspecified protein-calorie malnutrition; I11.0 Hypertensive heart disease with heart failure; I50.9 Heart failure, unspecified; E83.39 Other disorders of phosphorus metabolism; E78.5 Hyperlipidemia, unspecified; F17.210 Nicotine dependence, cigarettes, uncomplicated; F22 Delusional disorders; F32.1 Major depressive disorder, single episode, moderate; F43.22 Adjustment disorder with anxiety; G89.29 Other chronic pain; I25.10 Atherosclerotic heart disease of native coronary artery without angina pectoris; I25.2 Old myocardial infarction; K21.9 Gastro-esophageal reflux disease without esophagitis; M47.817 Spondylosis without myelopathy or radiculopathy, lumbosacral region; M51.16 Intervertebral disc disorders with radiculopathy, lumbar region; R45.851 Suicidal ideations; W18.30XA Fall on same level, unspecified, initial encounter; Y93.01 Activity, walking, marching and hiking; Z78.1 Physical restraint status; Z79.899 Other long term (current) drug therapy; Z80.0 Family history of malignant neoplasm of digestive organs; Z95.5 Presence of coronary angioplasty implant and graft

== ENCOUNTER 2018-07-30 08:24 | Emergency (ER) | payer OTHER ==
[2018-07-30 08:40] VITALS: BP 138/80; PULSE 86; RESP 18; TEMP 98.8; O2SAT 97
[2018-07-30] MEDS ORDERED: TDAP Vaccine 0.5 mL Syr IM ONE (08:45)
--- NOTE | 2018-07-30 08:46 | ED PDOC ---
Arrival/HPI - General Chief Complaint: Abnormal Skin Integrity Time Seen by Provider: 07/30/18 08:25 Historian: Patient - History of Present Illness Narrative History of Present Illness (Text): 07/30/18 08:43 57 year old male, whose past medical history includes CAD with 3 cardiac stents, hyperlipidemia, hypertension, chronic back pain, and alcohol abuse, presents to the emergency department complaining of laceration to the left index and left thumb. Patient states that he was cooking when he inadvertently cut his index finger and [email or web address] with a knife. He reports his last tenaus shot was over 5 years ago. Patient denies fevers, chills, headache, dizziness, chest pain, shortness of breath, dyspnea on exertion, cough, abdominal pain, nausea, vomiting, diarrhea, back pain, neck pain, or any other complaint. Time/Duration: 1/2 hour Symptom Course: Unchanged Activities at Onset: Rest Context: Work Past Medical History - Provider Review Nursing Documentation Reviewed: Yes - Travel History Have you recently traveled outside [place] w/in the past 3 mons?: No - Infectious Disease Hx of Infectious Diseases: None - Tetanus Immunization Tetanus Immunization: Unknown - Cardiac Hx Cardiac Disorders: Yes ([place], 3 stents 2008) Hx Hypertension: Yes - Pulmonary Hx Respiratory Disorders: No - Neurological Hx Neurological Disorder: No - HEENT Hx HEENT Disorder: No - Renal Hx Renal Disorder: No - Endocrine/Metabolic Hx Endocrine Disorders: No - Hematological/Oncological Hx Blood Disorders: No - Integumentary Hx Dermatological Disorder: No Hx Basal Cell Carcinoma: No - Musculoskeletal/Rheumatological Hx Musculoskeletal Disorders: (back issues) - Gastrointestinal Hx Gastrointestinal Disorders: No - Genitourinary/Gynecological Hx Genitourinary Disorders: No - Psychiatric Hx Depression: Yes Hx Emotional Abuse: No Hx Physical Abuse: No Hx Substance Use: Yes - Surgical History Hx Coronary Stent: Yes - Anesthesia Hx Anesthesia: Yes Hx Anesthesia Reactions: No Hx Malignant Hyperthermia: No - Suicidal Assessment Feels Threatened In Home Enviroment: No Family/Social History - Physician Review Nursing Documentation Reviewed: Yes Family/Social History: No Known Family HX Smoking Status: cigars Hx Alcohol Use: Yes Frequency of alcohol use: Socially Hx Substance Use: Yes Hx Substance Use Treatment: No Allergies/Home Meds Allergies/Adverse Reactions: Allergies No Known Allergies Allergy (Verified 12/19/16 16:51) Home Medications: Home Meds Medication Instructions Recorded Confirmed RX: Gabapentin [Neurontin] 300 mg PO Q8H 04/24/18 04/24/18 RX: Oxycodone HCl/Acetaminophen 1 each PO TID PRN 04/24/18 04/24/18 [Percocet 10-325 mg Tablet] Review of Systems - Physician Review All systems were reviewed & negative as marked: Yes - Review of Systems Constitutional: absent: Fevers Eyes: absent: Vision Changes Respiratory: absent: SOB, Cough Cardiovascular: absent: Chest Pain Gastrointestinal: absent: Abdominal Pain, Diarrhea, Nausea, Vomiting Musculoskeletal: absent: Back Pain, Neck Pain Skin: Laceration (lacerationg to the left index and left thumb) Neurological: absent: Headache, Dizziness Physical Exam Vital Signs Reviewed: Yes Vital Signs Temp Pulse Resp BP Pulse Ox 07/30/18 08:25 98.8 F 86 18 138/80 97 Temperature: Afebrile Blood Pressure: Normal Pulse: Regular Respiratory Rate: Normal Appearance: Positive for: Well-Appearing, Non-Toxic, Comfortable Pain Distress: None Mental Status: Positive for: Alert and Oriented X 3 - Systems Exam Head: Present: Atraumatic, Normocephalic Pupils: Present: PERRL Extroacular Muscles: Present: EOMI Conjunctiva: Present: Normal Mouth: Present: Moist Mucous Membranes Neck: Present: Normal Range of Motion Respiratory/Chest: Present: Clear to Auscultation, Good Air Exchange. No: Respiratory Distress, Accessory Muscle Use Cardiovascular: Present: Regular Rate and Rhythm, Normal S1, S2. No: Murmurs Abdomen: No: Tenderness, Distention, Peritoneal Signs Back: Present: Normal Inspection Upper Extremity: Present: NORMAL PULSES, Neurovascularly Intact, Capillary Refill < 2s, Other (2cm simple laceration noted to the index of the left hand, 0.5cm linear laceration noted on the thumb of the left hand, no foreign bodies appreciating). No: Cyanosis, Edema Lower Extremity: Present: Normal Inspection. No: Edema Neurological: Present: GCS=15 Skin: Present: Warm, Dry, Normal Color, Laceration (Linear laceration noted to L index finger). No: Rashes Psychiatric: Present: Alert, Oriented x 3, Normal Insight, Normal Concentration Medical Decision Making ED Course and Treatment: 07/30/18 08:44 Impression: 57 year old male who presents to the emergency department complaining of a laceration to the left index and thumb. Differential Diagnosis included but are not limited to: -Laceration Plan: -- Motrin -- Boostrix Vaccine -- Reassess and disposition Prior Visits: Notes and results from previous visits were reviewed. Progress Notes: 07/30/18 09:08 Suture repair completed without much difficulty. Patient advised to avoid exposing wound to food and other potential bacterial spaces. Encouragement to follow up in clinic or with PCP for suture removal in 5 days. He demonstrates understanding and will follow up. He is stable for discharge. - Procedure PROCEDURE NOTE (Text): 07/30/18 08:56 PROCEDURE: LACERATION REPAIR Performed by the emergency provider Location: index of the left hand Length: 2cm Description: clean wound edges, no foreign bodies, L shaped superficial laceration Distal CMS: Normal. No deficits. Neurovascularly intact. Anesthesia: Lidocaine 1% Preparation: The wound was cleaned with NS and Betadyne. The area was prepped and draped in the usual sterile fashion. Exploration: The wound was explored and no foreign bodies were found. Procedure: The wound was closed with 3.0 nylon. There was good approximation. In total, 7 were used. Post-Procedure: Good closure and hemostasis. The patient tolerated the procedure well and there were no complications. CSM remains intact. Post procedure dressing applied. - Scribe Statement The provider has reviewed the documentation as recorded by the Yairibe Neli Maier Provider Scribe Attestation: All medical record entries made by the Scribe were at my direction and personally dictated by me. I have reviewed the chart and agree that the record accurately reflects my personal performance of the history, physical exam, medical decision making, and the department course for this patient. I have also personally directed, reviewed, and agree with the discharge instructions and disposition. Disposition/Present on Arrival - Present on Arrival Any Indicators Present on Arrival: Yes History of DVT/PE: No History of Uncontrolled Diabetes: Yes Urinary Catheter: No History of Decub. Ulcer: No History Surgical Site Infection Following: None - Disposition Have Diagnosis and Disposition been Completed?: Yes Diagnosis: Finger laceration Disposition: HOME/ ROUTINE Disposition Time: 09:36 Patient Plan: Discharge Condition: IMPROVED Discharge Instructions (ExitCare): Laceration Repair With Stitches (DC) Print Language: HONDURAN Additional Instructions: All medical record entries made by the Scribe were at my direction and personally dictated by me. I have reviewed the chart and agree that the record accurately reflects my personal performance of the history, physical exam, medical decision making, and the department course for this patient. I have also personally directed, reviewed, and agree with the discharge instructions and disposition. Please avoid contact with moisture for at least 12 hours. Please follow up with your PCP in 3-5 days for wound reevaluation and suture removal Referrals: Payton Ro MD [Medical Doctor] - Follow up with primary [facility] [Outside] - Follow up with primary Forms: [facility] (Kazakh), WORK NOTE
== END 2018-07-30 09:55 | disposition home or self-care (01) ==
LOC: ED 08:24
DX: S61.211A Laceration without foreign body of left index finger without damage to nail, initial encounter (principal); W26.0XXA Contact with knife, initial encounter; Y93.G3 Activity, cooking and baking; Y99.0 Civilian activity done for income or pay; I10 Essential (primary) hypertension; E78.5 Hyperlipidemia, unspecified; I25.10 Atherosclerotic heart disease of native coronary artery without angina pectoris; Z23 Encounter for immunization